=== PATIENT | male | born 1935 | race Caucasian/White ===

== ENCOUNTER 2017-09-07 16:51 | Outpatient (CLI) | payer MEDICARE ==
[~2017-09-07] VITALS: Ht 182.9 cm; Wt 84.3 kg
--- NOTE | ~2017-09-07 | HEMODYNAMI ---
PATIENT:DWAINE MIKE MEDICAL RECORD: [id number] : 35 LOCATION:[facility] D.2130 ADMISSION DATE: 09/07/17 Generatedon:09/10/20179:55 Patient name: DWAINE MIKE Patient #: [id number] SSN: : 1935 Date of study: 09/10/2017 Page: Of Hemodynamic Procedure Report Patient Data Patient Demographics Procedure consent was obtained First Name: DWAINE Gender: Male Last Name: CEE : 1935 Patient #: [id number] Age: 81 year(s) Race: Unknown Additional ID: [id number] Contact details [address]: [address] [place] [address] TRAIL State: [place] City: [facility] [place] Zip code: [address] Admission Admission Data Admission Date: 09/07/2017 Admission Time: 18:21 Room #: D.2130 Lab Results Lab Result Date: 09/10/2017 Lab Result Time: 0:00 Biochemistry Name Units Result Min Max BUN mg/dl 37 --(----)-* 7 18 Creatinine mg/dl 2.7 --(----)-* 0.6 1.3 CBC Name Units Result Min Max Hemoglobin g/dl 11 *-(----)-- 13.5 17.5 Procedure Procedure Types Cath Procedure PCI Procedure Coronary Stent Coronary Stent Initial Miscellaneous Procedures Moderate Sedation up to 30 minutes Procedure Description Procedure Date Procedure Date: 09/10/2017 Procedure Start Time: 9:37 Procedure End Time: 9:53 Procedure Staff Name Function Zaid Louis MD Performing Physician Nicole Davidson RT Scrub Sun Brito RT Monitor Luis Briggs RN Nurse Procedure Data Cath Procedure Fluoroscopy Diagnostic fluoroscopy Total fluoroscopy Time: 3.8 time: 3.8 min min Diagnostic fluoroscopy Total fluoroscopy dose: 661 dose: 661 mGy mGy Contrast Material Contrast Material Type Amount (ml) Isovue 300 37 Entry Location Entry Primary Successful Side Size Upsize Upsize Entry Closure Succes sful Closure Location (Fr) 1 (Fr) 2 (Fr) Remarks Device Remarks Femoral Left 6 Fr Exoseal artery Short Estimated blood loss: 5 ml Procedure Complications No complications Procedure Medications Medication Administration Route Dosage Oxygen NC 2 l/min Heparin Flush Bag added to field 2 bags (1000units/500ml NS) 0.9% NaCl I.V. 300 ml/hr Fentanyl I.V. 25 mcg Versed I.V. 0.5 mg Heparin Bolus I.V. 4000 units Hemodynamics Rest HGB: 11 (g/dl) Heart Rate: 61 (bpm) Snapshots Pre Cath Intra NCS Post Cath Vital Signs Time Heart Resp SPO2 etCO2 NIBP (mmHg) Rhythm Pain Sedation Rate (ipm) (%) (mmHg) Status Level (bpm) 9:22:25 63 21 90 0 168/69(134) NSR 0 (11) 10(A) , No pain 9:26:53 61 18 94 0 186/75(140) NSR 0 (11) 10(A) , No pain 9:31:25 59 16 95 0 158/68(119) NSR 0 (11) 10(A) , No pain 9:35:52 57 17 95 0 149/62(115) NSR 0 (11) 10(A) , No pain 9:40:18 56 19 98 0 150/59(112) NSR 0 (11) 9(A) , No pain 9:44:42 55 16 97 0 146/60(113) NSR 0 (11) 9(A) , No pain 9:49:06 56 18 96 0 139/55(109) NSR 0 (11) 9(A) , No pain 9:53:29 55 17 96 0 144/58(112) NSR 0 (11) 9(A) , No pain Medications Time Medication Route Dose Verified Delivered Reason Notes Effectiveness by by 9:34:43 Oxygen NC 2 Zaid Smith Per physician l/min Heriberto Briggs RN 9:34:52 Heparin Flush added 2 Zaid Smith used for Bag to bags Heriberto Briggs industrial painter (1000units/500ml field NS) 9:35:02 0.9% NaCl I.V. 300 Zaid Smith Per physician ml/hr Heriberto Briggs RN 9:35:11 Fentanyl I.V. 25 Zaid Smith for sedation mcg Heriberto Briggs RN 9:35:20 Versed I.V. 0.5 Zaid Smith for sedation mg Heriberto Briggs RN 9:47:02 Heparin Bolus I.V. 4000 Zaid Smith for units Heriberto Briggs RN anticoagulation Procedure Log Time Note 8:55:59 Luis Briggs RN sent for patient. Start room use. 9:18:10 Time tracking: Regular hours 9:18:14 Plan of Care:Hemodynamics will remain stable., Cardiac rhythm will remain stable., Comfort level will be maintained., Respiratory function will remain adequate., Patient/ family verbilizes understanding of procedure., Procedure tolerated without complication., Recovers from procedure without complications.. 9:18:31 Patient received from PCU to CCL 2 Alert and oriented. Tansferred to table in Supine position. 9:18:32 Warm blankets applied, and stacie hugger turned on for patient comfort. 9:18:32 Correct patient and procedure confirmed by team. 9:18:33 Signed procedure consent form obtained from patient. 9:18:34 ECG and BP/O2 sat monitors applied to patient. 9:21:07 Vital chart was started 9:21:19 Baseline sample Acquired. 9:21:25 Rhythm: sinus rhythm 9:21:26 Full Disclosure recording started 9:21:47 H&P Date Dictated: 09/09/2017 Within 30 days and on chart.. 9:21:48 Pre-procedure instructions explained to patient. 9:21:49 Pre-op teaching completed and patient verbalized understanding. 9:21:51 Family in patients room. 9:21:52 Patient NPO since Midnight. 9:21:53 Is the patient allergic to Iodine/contrast media? No. 9:21:54 Is patient on blood thinner?Yes 9:21:57 ACC The patient was administered the following blood thiners within the last 24 hours: ACCPlavix 9:22:01 Patient diabetic? Yes. 9:24:23 If diabetic: On Metformin? Yes 9:24:27 If on Metformin: Last Dose? 09/06/2017 9:24:30 Previous problem with sedation/anesthesia? No ? 9:24:32 Snore? Yes 9:24:36 Sleep apnea? No 9:24:37 Deviated septum? No 9:24:39 Opens mouth fully? Yes 9:24:40 Sticks out tongue? Yes 9:24:55 Airway obstruction? Yes COPD 9:26:13 Dentures? Yes out 9:27:12 Pre procedure: right dorsailis pedis pulse 1+ Palpable, but thready & weak; easily obliterated 9:27:14 Pre procedure: left dorsailis pedis pulse 1+ Palpable, but thready & weak; easily obliterated 9:27:16 Patient pain scale 0/10 ?. 9:27:46 IV patent on arrival in right hand with 0.9% NaCl at [facility]. 9:28:12 Lab Result : BUN 37 mg/dl 9::12 Lab Result : Hemoglobin 11 g/dl 9::12 Lab Result : Creatinine 2.7 mg/dl 9::48 Lab results completed and on chart. 9:29:31 Left groin area was prepped with chlora-prep and draped in sterile fashion 9:29:31 Alarms reviewed by R. N. 9:29:32 Sharps counted by scrub and verified by R.N. 9:30:47 Physician arrived 9:30:48 --------ALL STOP TIME OUT------ 9:30:48 Final Timeout: patient, procedure, and site verified with staff and physician. All members of the team are in agreement. 9:30:52 Left groin site verified by team. 9:30:55 Physical assessment completed. ASA score P 2 - A patient with mild systemic disease as per Zaid Louis MD. 9:31:00 Sedation plan: IV Moderate Sedation Medication:Versed, Fentanyl 9:32:24 Use device set Acist 9:32:26 ACIST Syringe (03712) opened to sterile field. 9:32:27 ACIST Hand Control (46368) opened to sterile field. 9:32:27 ACIST Manifold (71253) opened to sterile field. 9:32:30 Use device set TAUTH PCI 9:32:32 INFLATOR Merit BasixCompak (JU0531) opened to sterile field. 9:32:32 SHEATH 6FR [place] (RRK820) opened to sterile field. 9:32:43 EXOSEAL 6Fr (EX600) opened to sterile field. 9:33:16 DIAGNOSTIC WIRE .035 260cm J wire (559554) opened to sterile field. 9:34:43 Oxygen 2 l/min NC was administered by Luis Briggs RN; Per physician; 9:34:52 Heparin Flush Bag (1000units/500ml NS) 2 bags added to field was administered by Luis Briggs RN; used for procedure; 9:35:02 0.9% NaCl 300 ml/hr I.V. was administered by Luis Briggs RN; Per physician; 9:35:11 Fentanyl 25 mcg I.V. was administered by Luis Briggs RN; for sedation; 9:35:20 Versed 0.5 mg I.V. was administered by Luis Briggs RN; for sedation; 9:37:03 Procedure started. 9:37:25 Local anesthetic to left femerol artery with Lidocaine 2% by Zaid Louis MD.INITIAL ACCESS ONLY 9:42:39 A 6 Fr Short sheath was inserted into the Left Femoral artery 9:43:24 GUIDE 6FR XBLAD 3.5 SH catheter ([id number]) opened to sterile field. 9:44:34 6 Fr xblad 3.5 sh guide catheter was inserted over the wire 9:44:45 LCA angiography performed. 9:46:55 CHOICE PT Extra Support 182cm wire ([id number]) opened to sterile field. 9:47:02 Heparin Bolus 4000 units I.V. was administered by Luis Briggs RN; for anticoagulation; 9:48:30 choice pt wire advanced. 9:48:32 Wire advanced across lesion. 9:51:07 Inflation Number: 1 A SHANI RX 2.25 x 30 stent ([id number]) was prepped and advanced across the 1st Diag. The stent was deployed at 13 MICHAEL for 0:10 (min:sec). 9:51:24 Stent catheter was removed intact over wire. 9:51:25 Wire removed. 9:51:26 Guide catheter removed. 9:51:59 Sheath removed intact; hemostasis achieved with Exoseal to the Left Femoral artery. 9:52:02 Procedure ended.(Physican Out) 9:52:19 Fluoroscopy time 03.80 minutes. 9:52:29 Flurop Dose total: 661 9:52:29 Fluoroscopy dose: 661 mGy 9::34 Contrast amount:Isovue 300 37ml. 9:52:35 Sharps counted by scrub and verified by R.N. 9:52:37 Insertion/operative site no bleeding no hematoma. 9:52:40 Post-op/insertion site Left Femoral artery dressed using a 4 x 4 and Tegaderm. 9:52:43 Post left femerol artery:stable 9:52:45 Post Procedure Pulses reassessed and unchanged 9:52:48 Post procedure rhythm: unchanged. 9:52:50 Estimated blood loss: 5 ml 9:52:53 Post procedure instruction explained to patient.Patient verbalizes understanding. 9:52:53 Patient needs reinforcement of post procedure teaching. 9:53:04 Procedure type changed to Cath procedure, PCI procedure, Coronary Stent, Coronary Stent Initial, Miscellaneous Procedures, Moderate Sedation up to 30 minutes 9:53:06 Procedure and supply charges have been captured, reviewed, submitted and are correct. 9:53:10 Procedure Complication : No complications 9:53:12 Vital chart was stopped 9:53:13 See physician's report for complete and final results. 9:53:32 Report given to [facility]. 9:53:39 Patient transfered to [facility] with Stretcher. 9:53:41 Procedure ended. 9:53:41 Full Disclosure recording stopped 9:53:49 ACC-PCI Only Patient was given prescriptions, or instructed by Zaid Louis MD to start/continue the following medications upon discharge: Plavix 9:53:50 End room use (Document Last) Intervention Summary Intervention Notes Time ActionType Lesion and Equipment Used Action# Pressure Duration Attributes 9:51:07 Place stent 1st Diag SHANI RX 2.25 x 1 13 00:10 30 stent ([id number]) Device Usage Item Name Manufacture Quantity Catalog Number Hospital Part Current M inimal Lot# / Charge Number Stock Stock Serial# Code ACIST Syringe Acist 1 71352 848183 226833 520327 2 0 (30539) Medical Systems Inc ACIST Hand Acist 1 97601 144510 066605 830716 5 Control Medical (90292) Systems Inc ACIST Manifold Acist 1 26617 360722 108330 213299 5 (07353) [employer] Inc INFLATOR Merit Merit 1 [id number] 040978 939535 901358 1 5 TriCipher ([id number]) SHEATH 6FR Terumo 1 RLR002 480981 901436 979228 4 0 [place] ([id number]) EXOSEAL 6Fr Cardinal 1 EX600 623080 207271 471968 1 0 (EX600) Health DIAGNOSTIC [place] 1 826553 109665 205759 147581 3 0 WIRE .035 260cm J wire (732212) GUIDE 6FR Cardinal 1 [id number] 972576 961473 425601 3 XBLAD 3.5 SH Health catheter ([id number]) CHOICE PT [place] 1 [id number] 115534 502034 574691 5 Extra Support Scientific 182cm wire ([id number]) SHANI RX 2.25 x Medtronic 1 [id number] 675915 3970911 733405 5 [id number] 30 stent ([id number]) Signature Audit [place] Stage Time Signature Unsigned Intra-Procedure 09/10/2017 Sun Brito 9:55:32 AM RT(R) Signatures Monitor : Sun Brito RT Signature : Date : Time : [facility] [address] [place] [address]
[2017-09-07 17:33] LABS: BASOPHILS 0.2 % (0-2); EOSINOPHILS 5.6 % (0-7); HEMATOCRIT 32.5 % (42.0-54.0); HEMOGLOBIN 10.3 g/dL (13.5-17.5); IMMATURE GRANULOCYTES 0.2 % (0-5); LYMPHOCYTES 20.5 % (15-50); MCH 30.7 pg (26.0-34.0); MCHC 31.7 g/dL (31.0-37.0); MEAN PLATELET VOLUME 11.8 fL (7.4-10.4); MONOCYTES 11.9 % (2-11); NEUTROPHILS 61.6 % (40-80); PLATELET COUNT 150 10x3/uL (130-400); RBC 3.35 10x6/uL (4.20-6.10); RDW 13.1 % (11.5-14.5); WBC 6.1 10x3/uL (4.8-10.8)
[2017-09-07 17:46] LABS: ALBUMIN 3.4 g/dL (3.4-5.0); ALKALINE PHOSPHATASE 61 U/L (46-116); ALT (SGPT) 12 U/L (10-68); BILIRUBIN - TOTAL 0.23 mg/dL (0.2-1.3); CALC OSMOLALITY 290 mosm/kg (275-300); CALCIUM 11.1 mg/dL (8.5-10.1); CARBON DIOXIDE 34.3 mmol/L (21.0-32.0); CHLORIDE - SERUM 101 mmol/L (98-107); GLUCOSE 148 mg/dL (74-106); POTASSIUM - SERUM 4.8 mmol/L (3.5-5.1); PROTEIN - SERUM 7.1 g/dL (6.4-8.2); SODIUM 140 mmol/L (136-145); UREA NITROGEN 37 mg/dL (7-18); eGFR NON AFRICAN AMERICAN 34 mL/min (90-120)
[2017-09-07 17:57] LABS: CHOL - HDL RATIO 3.7 ratio (2.3-4.9); CHOLESTEROL, TOTAL 130 mg/dL (0-200); CKMB 1.9 U/L (0.0-3.6); CREATINE KINASE 61 UL (21-232); HDL CHOLESTEROL 35 mg/dL (32-96); LDL CHOLESTEROL 51 mg/dL (0-100); LDL-HDL RATIO 1.5 ratio (1.5-3.5); TRIGLYCERIDE 223 mg/dL (30-200); TROPONIN-I < 0.017 ng/mL (0.000-0.060)
[2017-09-07 18:50] LABS: MAGNESIUM - SERUM 1.6 mg/dL (1.8-2.4)
--- NOTE | 2017-09-07 19:30 | NUR ---
RECIEVED TO ROOM 2130 FROM ER VIA W/C. PT A&O. IV TO HAND SL, SITE CLEAN AND DRY. PLACED ON TELEMETRY. VITALS STABLE. AT BED SIDE, RECLINER CHAIR TAKEN TO ROOM FOR PTS . NO OTHER NEEDS AT THIS TIME, BED LOW, CL IN REACH.
[2017-09-07] MEDS ORDERED: NORVASC10 MG PO (20:07)
[2017-09-07] MEDS ORDERED: LASIX80 MG PO (20:08)
[2017-09-07] MEDS ORDERED: TRAZODONE HCL50 MG PO (20:09)
[2017-09-07] MEDS ORDERED: COREG6.25 MG PO (20:09)
[2017-09-07] MEDS ORDERED: ZOFRAN ODT4 MG/UDTAB PO (20:10)
[2017-09-07] MEDS ORDERED: JANUVIA100 MG PO (20:12)
[2017-09-07] MEDS ORDERED: CARDURA2 MG PO (20:12)
[2017-09-07] MEDS ORDERED: PROTONIX40 MG PO (20:12)
[2017-09-07] MEDS ORDERED: PRAVASTATIN SOD10 MG PO (20:13)
[2017-09-07] MEDS ORDERED: GLUCOPHAGE850 MG PO (20:13)
[2017-09-07] MEDS ORDERED: VITAMIN D5000 UNIT PO (20:15)
[2017-09-07] MEDS ORDERED: BAYER CHEWABLE81 MG PO (20:15)
[2017-09-07 21:14] VITALS: BP 131/59; BMI 25.6
[2017-09-07 21:26] VITALS: BP 131/59
--- NOTE | 2017-09-07 21:50 | NUR ---
CONSENTS SIGNED FOR CARDIAC CATH TO BE DONE IN AM. INFORMED PT OF NOTHING TO EAT OR DRINK AFTER MN, PT STATED UNDERSTANDING.
[2017-09-08] VITALS: BP 162/61
--- NOTE | 2017-09-08 03:20 | NUR ---
PT IN BED RESTING QUIETLY. BREATHING EVEN AND UNLABORED. BED IN LOW POSITION, CALL LIGHT WITHIN REACH. WILL CTM.
--- NOTE | 2017-09-08 05:15 | NUR ---
RESTING WITH EYES CLOSED, RESPERATIONS EVEN, NO S/S DISTRESS NOTED.
[2017-09-08 06:27] VITALS: BP 170/69
--- NOTE | 2017-09-08 07:13 | NUR ---
PT IN BED, WITH EYES CLOSED, AROUSES EASILY TO VOICE. RESP EVEN AND UNLABORED, RT HAND IV SL. PT REQUESTING TO GET IN THE SHOWER. WILL PROVIDED PT WITH SUPPLIES NEEDED FOR SHOWER AND WILL COVER HIS IV. PT DENIES ANY OTHER NEEDS AT THIS TIME. CALL LIGHT IN REACH, NAD NOTED, WILL CONTINUE PLAN OF CARE.
[2017-09-08 07:31] VITALS: BP 184/73
--- NOTE | 2017-09-08 10:09 | NUR ---
PRE-OP MEDS GIVEN AT THIS TIME. PT UP TO BATHROOM. DENIES ANY NEEDS AT THIS TIME, AT BEDSIDE, CALL LIGHT IN REACH, NAD NOTED, WILL CONTINUE PLAN OF CARE.
--- NOTE | 2017-09-08 10:39 | NUR ---
PT TRANSFERED TO INTERPRETATIVE DANCER VIA BED, NAD NOTED.
--- NOTE | 2017-09-08 11:40 | NUR ---
RECEIVED REPORT FROM TONY FROM COLOR PRINTER OPERATOR.
[2017-09-08 11:41] VITALS: BP 182/74
--- NOTE | 2017-09-08 11:55 | NUR ---
RECEIVED PT BACK TO ROOM 2130, PT WITH EYES CLOSED BUT EASILY AROUSES TO VOICE. NO BLEEDING, OR HEMATOMA NOTED TO RT GROIN. DRESSING CLEAN AND INTACT. PLACED PT ON FREQUENT VITAL SIGNS. PLACED TELEMERTRY BACK ON. BLOOD SUGAR OF 123, NO COVERAGE NEEDED PER S/S. DR. PADILLA AT BEDSIDE TO TALK TO . ASKED DR. PADILLA ABOUT STARTING HOME MEDS. DR. PADILLA STATED THAT IT WAS OKAY TO START MEDS. PT DENIES ANY NEEDS AT THIS TIME, INSTRUTED PT AND THAT PT NEEDS TO LAY FLAT FOR 4HR. CALL LIGHT IN REACH, NAD NOTED, WILL CONTINUE TO MONITOR.
[2017-09-08 13:33] VITALS: Ht 182.9 cm; Wt 84.3 kg
--- NOTE | 2017-09-08 16:04 | NUR ---
RAISED HEAD OF BED TO 30 DEGREES AT THIS TIME. NO BLEEDING OR HEMATOMA NOTED TO RT GROIN. BLOOD SUGAR OF 102, NO COVERAGE NEEDED PER S/S. PT IN BED, DNEIES ANY NEEDS AT THIS TIME. CALL LIGHT IN REACH, NAD NOTED.
[2017-09-08 16:37] VITALS: BP 153/67
--- NOTE | 2017-09-08 20:21 | NUR ---
PT RESTING COMFORTABLY, ORANGE JELLO GIVEN FOR BEDTIME SNACK. NO NEEDS AT THIS TIME. RT GROIN REMAINS, CLEAN, DRY, DRESSING INTACT, NO HEMATOMA, WARM TO TOUCH. CONTINUE TO MONITOR CLOSELY.
[2017-09-08 21:03] VITALS: BP 143/70
[2017-09-09 05:40] VITALS: BP 138/61
--- NOTE | 2017-09-09 06:52 | NUR ---
PT RESTING COMFORTABLY I WAS PREPARING TO GIVE HIM HIS 0600 MEDICATIONS THIS A.M. I NOTICED PT HAD A BRIEF APNEIC EPISODE WHILE HE SLEPT, LASTING BETWEEN 10-15 SECONDS. PT WAS EASILY ROUSED WITH VERBAL STIMULI. TEACHING DONE ON VIOLETTE AND I HAVE ENCOURAGED PT TO NOTIFY HIS PHYSICIAN WELL. ALSO PT IS HAVING SMALL AMOUNTS OF BLOOD ON HIS TISSUE FROM HIS NOSE R/T THE DRYNESS OF THE O2. NO NEEDS AT THIS TIME. CONTINUE TO MONITOR CLOSELY.
--- NOTE | 2017-09-09 07:15 | NUR ---
PT IN BED, WATCHING TV, RESP EVEN AND UNLABORED, RT HAND IV SL. PT DENIES ANY NEEDS AT THIS TIME STATED HE IS WAITING FOR BREAKFAST. CALL LIGHT IN REACH, NAD NOTED, WILL CONTINUE PLAN OF CARE.
--- NOTE | 2017-09-09 08:18 | NUR ---
AM MEDS GIVEN AT THIS TIME. PT IN BED, EATING BREAKFAST, DENIES ANY NEEDS AT THIS TIME. CALL LIGHT IN REACH, NAD NOTED, WILL CONTINUE PLAN OF CARE.
[2017-09-09 08:34] VITALS: BP 134/59
--- NOTE | 2017-09-09 11:20 | NUR ---
BLOOD SUGAR OF 206, 4UNITS OF HUMULIN R GIVEN PER S/S. PT IN BED, DENIES ANY NEEDS AT THSI TIME. AT BEDSIDE, CALL LIGHT IN REACH, NAD NOTED, WILL CONTINUE PLAN OF CARE.
[2017-09-09 12:25] VITALS: BP 116/48
[2017-09-09 15:56] LABS: BASOPHILS 0 % (0-2); IMMATURE GRANULOCYTES 0.3 % (0-5); LYMPHOCYTES 18.8 % (15-50); MCH 30.6 pg (26.0-34.0); MCHC 31.4 g/dL (31.0-37.0); MCV 97.2 fL (80.0-100.0); MEAN PLATELET VOLUME 10.6 fL (7.4-10.4); MONOCYTES 12.2 % (2-11); NEUTROPHILS 62.7 % (40-80); PLATELET COUNT 135 10x3/uL (130-400); RDW 13.3 % (11.5-14.5); WBC 6.3 10x3/uL (4.8-10.8)
--- NOTE | 2017-09-09 16:17 | NUR ---
BLOOD SUGAR OF 154, 2UNITS OF HUMULIN R PER S/S. PT UP TO CHAIR, DENIES ANY NEEDS AT THIS TIME. CALL LIGHT IN REACH,NAD NOTED, WILL CONTINUE PLAN OF CARE.
[2017-09-09 16:20] LABS: ANION GAP 9.7 mmol/L (8-16); CALCIUM 10.2 mg/dL (8.5-10.1); POTASSIUM - SERUM 4.7 mmol/L (3.5-5.1)
[2017-09-09 16:21] LABS: CREATININE - SERUM 2.7 mg/dL (0.6-1.3)
[2017-09-09 16:35] VITALS: BP 133/50; BP 171/107
[2017-09-09 21:56] VITALS: BP 174/54
[2017-09-10 06:09] VITALS: BP 158/61
--- NOTE | 2017-09-10 07:14 | NUR ---
PT IN BED, WITH EYES CLOSED, AROUSES EASILY TO VOICE. RESP EVEN AND UNLABORED ON 2L. RT HAND IV SL. PT DENIES ANY NEEDS AT THIS TIME. CALL LIGHT IN REACH, NAD NOTED, WILL CONTINUE PLAN OF CARE.
[2017-09-10 08:43] VITALS: BP 158/62
--- NOTE | 2017-09-10 09:20 | NUR ---
PT TRANSFERED TO OFFICE SUPPORT ASSOCIATE VIA BED, NAD NOTED.
--- NOTE | 2017-09-10 10:10 | NUR ---
RECEIVED PT BACK TO ROOM 2129 VIA BED, VITAL SIGNS STABLE, NO BLEEDING OR HEMATOMA NOTED TO LT GROIN. PT DROWSY BUT EASILY AROUSES TO VOICE, PLACED PT ON FREQUENT VITAL SIGNS, PT DENIES ANY NEEDS AT THIS TIME. CALL LIGHT IN REACH, AT BEDSIDE, NAD NOTED, WILL CONTINUE TO MONITOR.
--- NOTE | 2017-09-10 11:59 | NUR ---
BLOOD SUGAR OF 127, NO COVERAGE NEEDED PER S/S. PT STILL SLEEPING, EASILY AROUSES EASILY TO VOICE. PT DENIES ANY NEEDS AT THIS TIME, AT BEDSIDE, NAD NOTED, WILL CONTINUE TO MONITOR.
[2017-09-10 13:12] VITALS: BP 134/45
--- NOTE | 2017-09-10 13:19 | NUR ---
Nutrition Follow Up: Pt is eating 81% meal avg on an AHA diet. No BM since admit. Wt stable. Labs reviewed. Meds noted including Lasix. Rec continue current diet. RD following.
[2017-09-10 17:17] VITALS: BP 129/54
--- NOTE | 2017-09-10 19:45 | NUR ---
ROUNDING NOTE: PT A,A,OX3, SITTING UP WATCHING TV IN BED AT CHANGE OF SHIFT. 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 PT HAD CARDIAC CATH DONE X2 VIA BILATERAL GROIN W/ STENT X1 TO CIRC AND STENT X1 TO DIAG. D/C HELD TODAY D/T ELEVATED BUN/CR LEVEL. PT WAS GIVEN IVF AND LABS WILL BE RECHECKED WITH POTENTIAL D/C IN THE AM. CATH SITES C/D/I WITH PALP PULSES BILATERALLY, NO HEMATOMAS. WILL CONT TO MONITOR.
[2017-09-10 22:00] VITALS: BP 141/53
[2017-09-11 00:36] VITALS: BP 155/54
[2017-09-11 05:11] VITALS: BP 141/57
--- NOTE | 2017-09-11 05:16 | NUR ---
PT HAS BEEN SLEEPING THROUGHOUT THE NIGHT WITHOUT COMPLAINT. WILL CONTINUE TO MONITOR.
[2017-09-11 07:17] LABS: ANION GAP 4.8 mmol/L (8-16); CALCIUM 10.5 mg/dL (8.5-10.1); CARBON DIOXIDE 36.7 mmol/L (21.0-32.0); CREATININE - SERUM 2.1 mg/dL (0.6-1.3); POTASSIUM - SERUM 4.5 mmol/L (3.5-5.1)
--- NOTE | 2017-09-11 07:30 | NUR ---
ASSESSMENT COMPLETED. TELEMERTY SHOWS SR 60. IV TO RIGHT HAND. RIGHT AND LEFT GROING WITH DRSG DRY AND INTACT. UP AT DEMARCO. WILL MONITOR
[2017-09-11 09:19] VITALS: BP 162/57
[2017-09-11] MEDS ORDERED: PLAVIX75 MG PO (10:07)
--- NOTE | 2017-09-11 10:37 | NUR ---
PT DISCHARGED. IV DCD WITH TIP INTACT. DRSG TO RIGHT AND LEFT GROIN INTACT. INSTRUCTIONS GIVEN. TO PRIVATE CAR PER WHEELCHAIR
--- NOTE | 2017-09-11 10:39 | NUR ---
TO PRIVATE CAR PER WHEELCHAIR
== END 2017-09-11 10:39 | disposition home or self-care (01) ==
LOC: OBSVTIME → D.ER 16:51 → D.OPS 16:51 → D.M2 18:08 → OBSVTIME 18:21 → D.ER 18:21 → D.M2 18:21 → EDSTATUS 09-08 09:00 → D.OPS 09-11 10:39 → D.M2 09-11 10:39
PROVIDERS: Emergency Medicine; Internal Medicine Interventional Cardiology
DX: I25.119 Atherosclerotic heart disease of native coronary artery with unspecified angina pectoris (principal); I70.219 Atherosclerosis of native arteries of extremities with intermittent claudication, unspecified extremity; N28.9 Disorder of kidney and ureter, unspecified; Z01.810 Encounter for preprocedural cardiovascular examination; Z01.812 Encounter for preprocedural laboratory examination; R94.31 Abnormal electrocardiogram [ECG] [EKG]
CPT/HCPCS: 93458; C9600 ×2

== ENCOUNTER → 2017-11-25 15:10 | Outpatient (CLI) | payer OTHER ==
[2017-09-08 13:33] VITALS: BMI 25.1
[~2017-11-25 15:10] MED LIST: BAYER CHEWABLE81 MG PO; CARDURA2 MG PO; CATAPRES0.1 MG PO; COREG6.25 MG PO; FLUTICASONE PRO16 GM NASAL; GLUCOPHAGE850 MG PO; HUMULIN R100 U/ML SC; HYDRALAZINE HCL50 MG PO; IPRAT-ALBUT 0.5-3 ML UPD; JANUVIA100 MG PO; LASIX80 MG PO; MUCINEX DM ER1 EAC1 PO; MUCINEX600 MG PO; NORVASC10 MG PO; PLAVIX75 MG PO; PRAVASTATIN SOD10 MG PO; PROTONIX40 MG PO; SINGULAIR10 MG PO; TESSALON PERLE100 MG PO; TRAZODONE HCL50 MG PO; VITAMIN D5000 UNIT PO; ZOFRAN ODT4 MG/UDTAB PO; ZOLOFT50 MG PO
[2017-11-25 16:22] LABS: APPEARANCE HAZY (CLEAR); BILIRUBIN NEGATIVE (NEGATIVE); COLOR DK YELLOW (YELLOW); GLUCOSE 50 mg/dL (NEGATIVE); KETONE NEGATIVE (NEGATIVE); NITRITE NEGATIVE (NEGATIVE); PROTEIN 2+ mg/dL (NEGATIVE); SPECIFIC GRAVITY 1.025 (1.005-1.020); UROBILINOGEN NORMAL (NORMAL)
[2017-11-25 16:23] LABS: BACTERIA FEW /hpf (NONE SEEN); WHITE CELLS - URINE 0-5 /hpf (0-5)
== END | disposition home or self-care (01) ==
LOC: D.RAD 15:10
PROVIDERS: Nurse Practitioner
DX: R50.9 Fever, unspecified (principal)

== ENCOUNTER 2017-11-26 10:39 | Inpatient (IN) | payer OTHER ==
[~2017-11-26] VITALS: Ht 182.9 cm; Wt 84.1 kg
--- NOTE | ~2017-11-26 | EC ---
PATIENT:DWAINE MIKE DATE OF SERVICE: 11/26/17 SEX: M MEDICAL RECORD: [id number] DATE OF : 35 LOCATION:[facility] AGE OF PATIENT: 82 ADMISSION DATE: 11/26/17 REFERRING PHYSICIAN: INTERPRETING PHYSICIAN: DANNIE BOWEN MD ECHOCARDIOGRAM REPORT ECHO CHARGES 4 ECHO COMPLETE CLINICAL DIAGNOSIS: CHF/ASSESS EF ECHOCARDIOGRAPHIC MEASUREMENTS (adult normal given) AC root (d.<3.7cm) 3.8 cm LV Septum d (<1.2 cm> 1.4 cm Valve Excursion 2.1 cm LV Septum (systole) 1.6 cm Left Atria (s.<4.0cm> 4.4 cm LVPW d(<1.2cm) 1.3 cm RV (d.<2.3cm) 3.9 cm LVPW (sytole) 1.5 cm LV diastole(<5.6CM) 6.3 cm MV E-F(>70mm/sec) cm LV systole 4.6 cm LVOT Diameter 2.2 cm MV exc.(>10mm) 2.2 cm Est.ejection fraction (50-75%) % Pericardial Effusion N DOPPLER: LVIT cm/sec A 129 cm/sec E 116 cm/sec LA cm/sec RVSP 23 mmHg LVOT 134 cm/sec AOP1/2T m/s Asc. Ao 169 cm/sec RVOT 115 cm/sec RA cm/sec PA 165 cm/sec AV Gradient Peak 11.42mmHg AV Mean 5.92 mmHg AV Area 3.1 cm MV Gradient Peak 8.73 mmHg MV Mean 3.82 mmHg MV Area cm COMMENTS: Automation Control Integrator: 2 ERNESTO LUEVANO Senior Staff Accountant: 4 Dr. Bowen TAPE# PACS DATE OF SERVICE: 11/27/2017 TRANSTHORACIC ECHOCARDIOGRAM FINDINGS: 1. Left ventricle is difficult to see. The overall ejection fraction appears to be reduced. There appears to be anterior septal hypokinesis. The overall ejection fraction is 30% to 35%. 2. Left atrium is mildly dilated. 3. Aortic valve is normal. ECHOCARDIOGRAM REPORT [id number] DWAINE MIKE 4. The mitral valve has mild mitral regurgitation. 5. Tricuspid valve has trace tricuspid regurgitation. 6. The right-sided structures are mildly dilated. The RVSP appears to be normal. 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 Difficult to get an exact number because endocardial structures are not well visualized. TRANSINT:[id number] Voice Confirmation ID: [id number] DOCUMENT ID: [id number] 12/06/2017 Edited to correct date of service, dmm. DANNIE BOWEN MD at 1001 CC: [id number] DICTATION DATE: 11/29/17 1152 MOTION PICTURE FILM EXAMINER: 11/29/17 1218 ADM IN [place] [id number] [place] [address]
--- NOTE | ~2017-11-26 | OP ---
PATIENT NAME: DWAINE MIKE MEDICAL RECORD: [id number] :35 LOCATION:[facility] ADMISSION DATE:11/26/17 SURGEON: OSIRIS MARKS MD DATE OF OPERATION: 11/30/2017 PREOPERATIVE DIAGNOSES: 1. Acute renal failure. 2. Coronary artery disease. 3. Hypertension. 4. UTI. POSTOPERATIVE DIAGNOSES: 1. Acute renal failure. 2. Coronary artery disease. 3. Hypertension. 4. UTI. PROCEDURE: Right IJ 12.5-cm Trialysis catheter placement. SURGEON: Osiris Marks MD REPORT OF PROCEDURE: The patient's right neck was prepped and draped in sterile fashion. Using ultrasound guidance, the right internal jugular was visualized. A 5 mL of 1% lidocaine with epinephrine was infused into the surrounding tissues. Using ultrasound guidance, a needle was used to cannulate the right internal jugular vein. The guidewire was advanced with ease. Over this wire, the dilator was placed followed by the Trialysis catheter. The catheter aspirated nonpulsatile dark blood and flushed easily in all 3 ports. This was sutured into place with 3-0 silk ties and dressed appropriately. COMPLICATIONS: None. CONDITION: Fair. ANESTHESIA: Local. BLOOD LOSS: Minimal. Procedure done in the ICU at the bedside. TRANSINT:[id number] Voice Confirmation ID: [id number] DOCUMENT ID: [id number] OSIRIS MARKS MD at 1319 CC: [id number] DICTATION DATE: 11/30/17 1549 COUNTRY MANAGER: 11/30/17 160[address] [place] [address]
[~2017-11-26 10:39] MED LIST changes: -CATAPRES0.1 MG PO; -FLUTICASONE PRO16 GM NASAL; -HUMULIN R100 U/ML SC; -HYDRALAZINE HCL50 MG PO; -IPRAT-ALBUT 0.5-3 ML UPD; -MUCINEX DM ER1 EAC1 PO; -MUCINEX600 MG PO; -SINGULAIR10 MG PO; -TESSALON PERLE100 MG PO; -ZOLOFT50 MG PO
[2017-11-26 11:07] LABS: BASOPHILS 0.1 % (0-2); EOSINOPHILS 0 % (0-7); HEMATOCRIT 25.9 % (42.0-54.0); IMMATURE GRANULOCYTES 0.4 % (0-5); LYMPHOCYTES 6.1 % (15-50); MCH 29.2 pg (26.0-34.0); MCHC 30.9 g/dL (31.0-37.0); MCV 94.5 fL (80.0-100.0); MEAN PLATELET VOLUME 12.8 fL (7.4-10.4); MONOCYTES 9.7 % (2-11); NEUTROPHILS 83.7 % (40-80); PLATELET COUNT 144 10x3/uL (130-400); RBC 2.74 10x6/uL (4.20-6.10); RDW 14.6 % (11.5-14.5)
[2017-11-26 11:08] LABS: ALBUMIN 2.7 g/dL (3.4-5.0); ANION GAP 13.4 mmol/L (8-16); BILIRUBIN - TOTAL 0.27 mg/dL (0.2-1.3); CALCIUM 10.8 mg/dL (8.5-10.1); CARBON DIOXIDE 29.1 mmol/L (21.0-32.0); CREATININE - SERUM 5.5 mg/dL (0.6-1.3); POTASSIUM - SERUM 5.5 mmol/L (3.5-5.1)
[2017-11-26 11:18] LABS: APTT 33.4 SECONDS (22.8-39.4); INR 1.29 (0.85-1.17); PROTIME 15.6 SECONDS (11.6-15.0)
[2017-11-26 11:31] LABS: TROPONIN-I 0.518 ng/mL (0.000-0.060)
[2017-11-26 11:58] LABS: APPEARANCE SLT CLOUDY (CLEAR); BILIRUBIN NEGATIVE (NEGATIVE); COLOR YELLOW (YELLOW); GLUCOSE 100 mg/dL (NEGATIVE); KETONE NEGATIVE (NEGATIVE); NITRITE NEGATIVE (NEGATIVE); PROTEIN 3+ mg/dL (NEGATIVE); SPECIFIC GRAVITY 1.015 (1.005-1.020)
[2017-11-26 11:59] LABS: AMORPHOUS SEDIMENT >1+ /lpf (NONE SEEN); BACTERIA MODERATE /hpf (NONE SEEN); EPITHELIAL CELLS 0-5 /hpf (0-5); MUCUS <1+ /lpf (NONE SEEN); RED CELLS - URINE 0-5 /hpf (0-5); WHITE CELLS - URINE OCC /hpf (0-5)
[2017-11-26 12:00] LABS: GRANULAR CAST OCC /lpf (NONE SEEN)
[2017-11-26 13:07] LABS: TROPONIN-I 0.551 ng/mL (0.000-0.060)
[2017-11-26 16:08] VITALS: BP 104/53; BMI 26.5
[2017-11-26] MEDS ORDERED: PROTONIX40 MG PO (16:22)
[2017-11-26 16:27] VITALS: BP 104/53
[2017-11-26 19:45] LABS: CKMB 1.5 U/L (0.0-3.6); CREATINE KINASE 65 UL (21-232)
[2017-11-26 19:49] LABS: TROPONIN-I 0.533 ng/mL (0.000-0.060)
[2017-11-26 20:00] VITALS: BP 140/59
[2017-11-27] VITALS: BP 126/40
[2017-11-27 00:24] LABS: CKMB 1.3 U/L (0.0-3.6); CREATINE KINASE 49 UL (21-232)
[2017-11-27 00:25] LABS: TROPONIN-I 0.456 ng/mL (0.000-0.060)
[2017-11-27 06:06] LABS: BASOPHILS 0.1 % (0-2); EOSINOPHILS 0 % (0-7); HEMATOCRIT 28.6 % (42.0-54.0); HEMOGLOBIN 8.9 g/dL (13.5-17.5); IMMATURE GRANULOCYTES 0.7 % (0-5); LYMPHOCYTES 5.4 % (15-50); MCH 29.3 pg (26.0-34.0); MCHC 31.1 g/dL (31.0-37.0); MCV 94.1 fL (80.0-100.0); MEAN PLATELET VOLUME 12.4 fL (7.4-10.4); MONOCYTES 8.1 % (2-11); NEUTROPHILS 85.7 % (40-80); PLATELET COUNT 144 10x3/uL (130-400); RBC 3.04 10x6/uL (4.20-6.10); RDW 14.6 % (11.5-14.5); WBC 9.4 10x3/uL (4.8-10.8)
[2017-11-27 06:23] LABS: ALBUMIN 2.3 g/dL (3.4-5.0); BILIRUBIN - TOTAL 0.2 mg/dL (0.2-1.3); CALCIUM 9.7 mg/dL (8.5-10.1); CARBON DIOXIDE 26.4 mmol/L (21.0-32.0); CREATININE - SERUM 5.8 mg/dL (0.6-1.3); POTASSIUM - SERUM 4.4 mmol/L (3.5-5.1); PROTEIN - SERUM 6.6 g/dL (6.4-8.2)
[2017-11-27 06:43] LABS: CKMB 1.1 U/L (0.0-3.6); CREATINE KINASE 37 UL (21-232)
[2017-11-27 06:51] LABS: TROPONIN-I 0.455 ng/mL (0.000-0.060)
[2017-11-27 07:45] VITALS: BP 146/64
[2017-11-27 10:50] VITALS: BP 152/77
[2017-11-27 14:58] VITALS: BP 132/56
[2017-11-27 18:06] LABS: % SATURATION 5 % (15-55); IRON 12 ug/dl (35-150); TOTAL IRON BIND CAPACITY 231 ug/dl (260-445); UNSAT IRON BIND CAPACITY 219 ug/dl (150-375)
[2017-11-27 21:40] VITALS: BP 140/51
[2017-11-28] VITALS (19 sets, daily range): BP systolic 92–160; BP diastolic 51–93
[2017-11-28 06:45] LABS: BASOPHILS 0 % (0-2); EOSINOPHILS 0.3 % (0-7); HEMATOCRIT 27.3 % (42.0-54.0); HEMOGLOBIN 8.5 g/dL (13.5-17.5); IMMATURE GRANULOCYTES 1.2 % (0-5); MCH 29.1 pg (26.0-34.0); MCHC 31.1 g/dL (31.0-37.0); MCV 93.5 fL (80.0-100.0); MEAN PLATELET VOLUME 12.1 fL (7.4-10.4); MONOCYTES 10.6 % (2-11); NEUTROPHILS 81.9 % (40-80); PLATELET COUNT 168 10x3/uL (130-400); RBC 2.92 10x6/uL (4.20-6.10); RDW 14.6 % (11.5-14.5)
[2017-11-28 07:02] LABS: ANION GAP 16.7 mmol/L (8-16); CALCIUM 9.8 mg/dL (8.5-10.1); CARBON DIOXIDE 24.7 mmol/L (21.0-32.0); CREATININE - SERUM 6.3 mg/dL (0.6-1.3); POTASSIUM - SERUM 4.4 mmol/L (3.5-5.1); VANCOMYCIN - TROUGH 8.4 ug/mL (10.0-20.0)
[2017-11-28 11:55] LABS: BILIRUBIN - DIRECT 0.11 mg/dL (0.00-0.30); BILIRUBIN - INDIRECT 0.15 mg/dL (0.00-1.00); BILIRUBIN - TOTAL 0.26 mg/dL (0.2-1.3); PROTEIN - SERUM 6.1 g/dL (6.4-8.2)
[2017-11-29] VITALS (24 sets, daily range): BP systolic 104–158; BP diastolic 52–81; Ht 182.9 cm; Wt 84.1 kg
[2017-11-29 04:50] LABS: BASOPHILS 0.1 % (0-2); EOSINOPHILS 1.6 % (0-7); HEMATOCRIT 28.5 % (42.0-54.0); HEMOGLOBIN 8.8 g/dL (13.5-17.5); IMMATURE GRANULOCYTES 0.9 % (0-5); LYMPHOCYTES 5.5 % (15-50); MCH 28.5 pg (26.0-34.0); MCHC 30.9 g/dL (31.0-37.0); MCV 92.2 fL (80.0-100.0); MEAN PLATELET VOLUME 12.1 fL (7.4-10.4); MONOCYTES 9.3 % (2-11); NEUTROPHILS 82.6 % (40-80); PLATELET COUNT 185 10x3/uL (130-400); RBC 3.09 10x6/uL (4.20-6.10); RDW 14.5 % (11.5-14.5); WBC 8.1 10x3/uL (4.8-10.8)
[2017-11-29 05:16] LABS: ANION GAP 15.9 mmol/L (8-16); BILIRUBIN - TOTAL 0.4 mg/dL (0.2-1.3); CALCIUM 9.6 mg/dL (8.5-10.1); CARBON DIOXIDE 27.3 mmol/L (21.0-32.0); CREATININE - SERUM 6.1 mg/dL (0.6-1.3); MAGNESIUM - SERUM 1.8 mg/dL (1.8-2.4); PHOSPHOROUS 5.3 mg/dL (2.5-4.9); POTASSIUM - SERUM 4.2 mmol/L (3.5-5.1); PROTEIN - SERUM 5.5 g/dL (6.4-8.2)
[2017-11-29 08:58] LABS: APPEARANCE SLT CLOUDY (CLEAR); BILIRUBIN NEGATIVE (NEGATIVE); COLOR YELLOW (YELLOW); GLUCOSE NEGATIVE (NEGATIVE); KETONE NEGATIVE (NEGATIVE); NITRITE NEGATIVE (NEGATIVE); PROTEIN TRACE mg/dL (NEGATIVE); SPECIFIC GRAVITY 1.015 (1.005-1.020); UROBILINOGEN NORMAL (NORMAL)
[2017-11-29 09:01] LABS: AMORPHOUS SEDIMENT <1+ /lpf (NONE SEEN); BACTERIA FEW /hpf (NONE SEEN); EPITHELIAL CELLS 0-5 /hpf (0-5); GRANULAR CAST 0-5 /lpf (NONE SEEN); MUCUS <1+ /lpf (NONE SEEN); WHITE CELLS - URINE 0-5 /hpf (0-5)
[2017-11-29 09:03] LABS: CREATININE - URINE 54.6 mg/dL (30-125); PRO/CRE RATIO URINE 1.4 mg/g; PROTEIN - URINE 73.8 mg/dL (0.0-11.9)
[2017-11-30] VITALS (24 sets, daily range): BP systolic 138–201; BP diastolic 52–120
[2017-11-30 04:51] LABS: BASOPHILS 0.1 % (0-2); EOSINOPHILS 3.2 % (0-7); HEMATOCRIT 26.8 % (42.0-54.0); HEMOGLOBIN 8.3 g/dL (13.5-17.5); IMMATURE GRANULOCYTES 1.2 % (0-5); LYMPHOCYTES 8.2 % (15-50); MCH 28.6 pg (26.0-34.0); MCV 92.4 fL (80.0-100.0); MEAN PLATELET VOLUME 11.7 fL (7.4-10.4); MONOCYTES 9.1 % (2-11); NEUTROPHILS 78.2 % (40-80); PLATELET COUNT 197 10x3/uL (130-400); RDW 14.5 % (11.5-14.5); WBC 8.5 10x3/uL (4.8-10.8)
[2017-11-30 05:10] LABS: ANION GAP 13.5 mmol/L (8-16); CALCIUM 10.5 mg/dL (8.5-10.1); CARBON DIOXIDE 29.6 mmol/L (21.0-32.0); CREATININE - SERUM 6.3 mg/dL (0.6-1.3); POTASSIUM - SERUM 4.1 mmol/L (3.5-5.1); VANCOMYCIN - RANDOM 11.8 ug/mL (10.0-20.0)
[2017-11-30 08:20] LABS: FOLATE (FOLIC ACID) - SERUM 12.4 ng/mL (>3.0)
[2017-11-30 10:19] LABS: OSMOLALITY - URINE 346 (())
[2017-12-01] VITALS (24 sets, daily range): BP systolic 121–191; BP diastolic 57–102
[2017-12-01 04:27] LABS: BASOPHILS 0.1 % (0-2); EOSINOPHILS 2.3 % (0-7); HEMATOCRIT 30.9 % (42.0-54.0); HEMOGLOBIN 9.8 g/dL (13.5-17.5); IMMATURE GRANULOCYTES 1.7 % (0-5); LYMPHOCYTES 6.9 % (15-50); MCH 29.2 pg (26.0-34.0); MCHC 31.7 g/dL (31.0-37.0); MEAN PLATELET VOLUME 11.1 fL (7.4-10.4); PLATELET COUNT 211 10x3/uL (130-400); RBC 3.36 10x6/uL (4.20-6.10); RDW 14.3 % (11.5-14.5); WBC 8.1 10x3/uL (4.8-10.8)
[2017-12-01 04:54] LABS: ANION GAP 12.9 mmol/L (8-16); CARBON DIOXIDE 29.5 mmol/L (21.0-32.0); VANCOMYCIN - RANDOM 15.7 ug/mL (10.0-20.0)
[2017-12-01 04:55] LABS: CREATININE - SERUM 4.2 mg/dL (0.6-1.3); POTASSIUM - SERUM 3.4 mmol/L (3.5-5.1)
[2017-12-02] VITALS (11 sets, daily range): BP systolic 147–197; BP diastolic 63–97
[2017-12-02 04:53] LABS: BASOPHILS 0.1 % (0-2); EOSINOPHILS 1.9 % (0-7); HEMATOCRIT 32.2 % (42.0-54.0); IMMATURE GRANULOCYTES 2.4 % (0-5); LYMPHOCYTES 9.1 % (15-50); MCH 28.9 pg (26.0-34.0); MCHC 31.1 g/dL (31.0-37.0); MCV 93.1 fL (80.0-100.0); MEAN PLATELET VOLUME 10.7 fL (7.4-10.4); MONOCYTES 9.1 % (2-11); NEUTROPHILS 77.4 % (40-80); PLATELET COUNT 220 10x3/uL (130-400); RBC 3.46 10x6/uL (4.20-6.10); RDW 14.5 % (11.5-14.5); WBC 7.8 10x3/uL (4.8-10.8)
[2017-12-02 05:27] LABS: ANION GAP 12.4 mmol/L (8-16); CALCIUM 9.3 mg/dL (8.5-10.1); CARBON DIOXIDE 28.2 mmol/L (21.0-32.0); CREATININE - SERUM 3.3 mg/dL (0.6-1.3); POTASSIUM - SERUM 3.6 mmol/L (3.5-5.1); VANCOMYCIN - RANDOM 10.3 ug/mL (10.0-20.0)
[2017-12-03 04:00] VITALS: BP 170/75
[2017-12-03 05:38] LABS: BASOPHILS 0.1 % (0-2); EOSINOPHILS 1.9 % (0-7); HEMATOCRIT 32.7 % (42.0-54.0); HEMOGLOBIN 10.1 g/dL (13.5-17.5); MCH 28.8 pg (26.0-34.0); MCHC 30.9 g/dL (31.0-37.0); MCV 93.2 fL (80.0-100.0); MEAN PLATELET VOLUME 10.8 fL (7.4-10.4); PLATELET COUNT 235 10x3/uL (130-400); RBC 3.51 10x6/uL (4.20-6.10); RDW 14.3 % (11.5-14.5); WBC 9.1 10x3/uL (4.8-10.8)
[2017-12-03 06:08] LABS: ANION GAP 11.7 mmol/L (8-16); BILIRUBIN - TOTAL 0.3 mg/dL (0.2-1.3); CARBON DIOXIDE 29.9 mmol/L (21.0-32.0); CREATININE - SERUM 3.8 mg/dL (0.6-1.3); POTASSIUM - SERUM 3.6 mmol/L (3.5-5.1); PROTEIN - SERUM 6.2 g/dL (6.4-8.2)
[2017-12-03 08:43] VITALS: BP 165/73
[2017-12-03 12:46] VITALS: BP 172/70
[2017-12-03 16:26] VITALS: BP 124/45
[2017-12-03 20:00] VITALS: BP 168/80
[2017-12-04 04:00] VITALS: BP 170/72
[2017-12-04 04:53] LABS: BASOPHILS 0.1 % (0-2); EOSINOPHILS 3.4 % (0-7); HEMOGLOBIN 10.3 g/dL (13.5-17.5); IMMATURE GRANULOCYTES 2.1 % (0-5); LYMPHOCYTES 10.3 % (15-50); MCH 28.8 pg (26.0-34.0); MCHC 31.2 g/dL (31.0-37.0); MCV 92.2 fL (80.0-100.0); MEAN PLATELET VOLUME 10.5 fL (7.4-10.4); MONOCYTES 9.3 % (2-11); NEUTROPHILS 74.8 % (40-80); PLATELET COUNT 221 10x3/uL (130-400); RBC 3.58 10x6/uL (4.20-6.10); WBC 9.1 10x3/uL (4.8-10.8)
[2017-12-04 05:14] LABS: ALBUMIN 2.2 g/dL (3.4-5.0); ANION GAP 9.1 mmol/L (8-16); BILIRUBIN - TOTAL 0.46 mg/dL (0.2-1.3); CALCIUM 10.3 mg/dL (8.5-10.1); CREATININE - SERUM 3.1 mg/dL (0.6-1.3); POTASSIUM - SERUM 3.1 mmol/L (3.5-5.1); PROTEIN - SERUM 6.5 g/dL (6.4-8.2); VANCOMYCIN - RANDOM 16.1 ug/mL (10.0-20.0)
[2017-12-04 10:43] LABS: ALBUMIN 2.3 g/dL (3.4-5.0); ANION GAP 10.5 mmol/L (8-16); BILIRUBIN - TOTAL 0.43 mg/dL (0.2-1.3); CALCIUM 9.9 mg/dL (8.5-10.1); CARBON DIOXIDE 31.1 mmol/L (21.0-32.0); CREATININE - SERUM 3.4 mg/dL (0.6-1.3); PROTEIN - SERUM 5.9 g/dL (6.4-8.2)
[2017-12-04 10:44] LABS: POTASSIUM - SERUM 3.6 mmol/L (3.5-5.1)
[2017-12-04 10:51] VITALS: BP 129/43
[2017-12-04 15:10] VITALS: BP 132/62
[2017-12-04 22:58] VITALS: BP 158/53
[2017-12-05 01:21] VITALS: BP 160/48
[2017-12-05 05:44] VITALS: BP 164/54
[2017-12-05 06:44] LABS: BASOPHILS 0.1 % (0-2); EOSINOPHILS 3.2 % (0-7); HEMATOCRIT 32.8 % (42.0-54.0); HEMOGLOBIN 10.4 g/dL (13.5-17.5); IMMATURE GRANULOCYTES 1.8 % (0-5); LYMPHOCYTES 9.5 % (15-50); MCH 29.4 pg (26.0-34.0); MCHC 31.7 g/dL (31.0-37.0); MCV 92.7 fL (80.0-100.0); MEAN PLATELET VOLUME 10.3 fL (7.4-10.4); MONOCYTES 7.9 % (2-11); NEUTROPHILS 77.5 % (40-80); PLATELET COUNT 208 10x3/uL (130-400); RBC 3.54 10x6/uL (4.20-6.10)
[2017-12-05 07:03] LABS: ALBUMIN 2.2 g/dL (3.4-5.0); ANION GAP 11.4 mmol/L (8-16); BILIRUBIN - TOTAL 0.41 mg/dL (0.2-1.3); CALCIUM 10.7 mg/dL (8.5-10.1); CARBON DIOXIDE 30.8 mmol/L (21.0-32.0); CREATININE - SERUM 3.9 mg/dL (0.6-1.3); MAGNESIUM - SERUM 1.6 mg/dL (1.8-2.4); PHOSPHOROUS 5.5 mg/dL (2.5-4.9); POTASSIUM - SERUM 3.2 mmol/L (3.5-5.1); PROTEIN - SERUM 6.4 g/dL (6.4-8.2); VANCOMYCIN - RANDOM 13.8 ug/mL (10.0-20.0)
[2017-12-05 09:00] VITALS: BP 153/73
[2017-12-05 13:13] VITALS: BP 158/72
[2017-12-05 16:58] VITALS: BP 162/71
[2017-12-05 23:07] VITALS: BP 154/53
[2017-12-06 04:17] LABS: BASOPHILS 0.1 % (0-2); EOSINOPHILS 3.8 % (0-7); HEMATOCRIT 32.4 % (42.0-54.0); HEMOGLOBIN 9.9 g/dL (13.5-17.5); IMMATURE GRANULOCYTES 1.6 % (0-5); LYMPHOCYTES 10.9 % (15-50); MCH 28.7 pg (26.0-34.0); MCHC 30.6 g/dL (31.0-37.0); MCV 93.9 fL (80.0-100.0); MEAN PLATELET VOLUME 10.3 fL (7.4-10.4); MONOCYTES 8.1 % (2-11); NEUTROPHILS 75.5 % (40-80); PLATELET COUNT 204 10x3/uL (130-400); RBC 3.45 10x6/uL (4.20-6.10); RDW 14.1 % (11.5-14.5); WBC 9.2 10x3/uL (4.8-10.8)
[2017-12-06 04:36] LABS: ALBUMIN 2.2 g/dL (3.4-5.0); ANION GAP 11.7 mmol/L (8-16); BILIRUBIN - TOTAL 0.29 mg/dL (0.2-1.3); CALCIUM 10.5 mg/dL (8.5-10.1); CARBON DIOXIDE 30.1 mmol/L (21.0-32.0); CREATININE - SERUM 4.4 mg/dL (0.6-1.3); POTASSIUM - SERUM 3.8 mmol/L (3.5-5.1); PROTEIN - SERUM 6.2 g/dL (6.4-8.2); VANCOMYCIN - RANDOM 14.1 ug/mL (10.0-20.0)
[2017-12-06 05:06] VITALS: BP 189/73
[2017-12-06 08:18] VITALS: BP 178/72
[2017-12-06 13:20] VITALS: BP 164/55
[2017-12-06 16:47] VITALS: BP 175/68
[2017-12-06 20:38] VITALS: BP 190/72
[2017-12-07 04:30] VITALS: BP 182/73
[2017-12-07 06:39] LABS: BASOPHILS 0.1 % (0-2); EOSINOPHILS 3.7 % (0-7); HEMATOCRIT 31.4 % (42.0-54.0); HEMOGLOBIN 9.6 g/dL (13.5-17.5); IMMATURE GRANULOCYTES 1.3 % (0-5); LYMPHOCYTES 12.3 % (15-50); MCH 28.7 pg (26.0-34.0); MCHC 30.6 g/dL (31.0-37.0); MCV 93.7 fL (80.0-100.0); MEAN PLATELET VOLUME 11.2 fL (7.4-10.4); MONOCYTES 7.5 % (2-11); NEUTROPHILS 75.1 % (40-80); PLATELET COUNT 195 10x3/uL (130-400); RBC 3.35 10x6/uL (4.20-6.10); WBC 9.2 10x3/uL (4.8-10.8)
[2017-12-07 07:16] LABS: ALBUMIN 2.3 g/dL (3.4-5.0); ANION GAP 13.8 mmol/L (8-16); BILIRUBIN - TOTAL 0.3 mg/dL (0.2-1.3); CALCIUM 10.1 mg/dL (8.5-10.1); CARBON DIOXIDE 27.7 mmol/L (21.0-32.0); CREATININE - SERUM 4.5 mg/dL (0.6-1.3); POTASSIUM - SERUM 3.5 mmol/L (3.5-5.1); PROTEIN - SERUM 6.1 g/dL (6.4-8.2); VANCOMYCIN - RANDOM 14.8 ug/mL (10.0-20.0)
[2017-12-07 08:39] VITALS: BP 173/66
[2017-12-07 13:36] VITALS: BP 137/65
[2017-12-07 15:25] LABS: HEPATITIS C ANTIBODY <0.1 (0.0-0.9)
[2017-12-07 16:07] VITALS: BP 203/72
[2017-12-07 22:18] VITALS: BP 150/51
[2017-12-08 04:29] VITALS: BP 166/61
[2017-12-08 06:17] LABS: ANION GAP 10.7 mmol/L (8-16); CALCIUM 10.3 mg/dL (8.5-10.1); CARBON DIOXIDE 29.8 mmol/L (21.0-32.0); CREATININE - SERUM 4.4 mg/dL (0.6-1.3); POTASSIUM - SERUM 3.5 mmol/L (3.5-5.1)
[2017-12-08 06:41] LABS: BASOPHILS 0.1 % (0-2); EOSINOPHILS 4.4 % (0-7); HEMATOCRIT 29.4 % (42.0-54.0); HEMOGLOBIN 8.9 g/dL (13.5-17.5); IMMATURE GRANULOCYTES 0.7 % (0-5); MCH 28.5 pg (26.0-34.0); MCHC 30.3 g/dL (31.0-37.0); MCV 94.2 fL (80.0-100.0); MEAN PLATELET VOLUME 11.1 fL (7.4-10.4); MONOCYTES 8.2 % (2-11); NEUTROPHILS 73.6 % (40-80); PLATELET COUNT 165 10x3/uL (130-400); RBC 3.12 10x6/uL (4.20-6.10); RDW 14.1 % (11.5-14.5); WBC 8.4 10x3/uL (4.8-10.8)
[2017-12-08 09:11] VITALS: BP 168/61
[2017-12-08 12:46] VITALS: BP 157/57
[2017-12-08 16:46] VITALS: BP 130/46
[2017-12-08 20:00] VITALS: BP 146/53
[2017-12-09] VITALS: BP 151/57
[2017-12-09 03:13] LABS: IMMUNOGLOBULIN E 1057 IU/mL (0-100)
[2017-12-09 04:00] VITALS: BP 154/52
[2017-12-09 05:49] LABS: BASOPHILS 0 % (0-2); EOSINOPHILS 4.3 % (0-7); HEMATOCRIT 28.2 % (42.0-54.0); HEMOGLOBIN 8.4 g/dL (13.5-17.5); IMMATURE GRANULOCYTES 0.8 % (0-5); MCH 28.2 pg (26.0-34.0); MCHC 29.8 g/dL (31.0-37.0); MCV 94.6 fL (80.0-100.0); MEAN PLATELET VOLUME 11.5 fL (7.4-10.4); MONOCYTES 9.4 % (2-11); NEUTROPHILS 73.5 % (40-80); PLATELET COUNT 146 10x3/uL (130-400); RBC 2.98 10x6/uL (4.20-6.10); RDW 14.1 % (11.5-14.5); WBC 7.8 10x3/uL (4.8-10.8)
[2017-12-09 06:06] LABS: ANION GAP 11.3 mmol/L (8-16); CALCIUM 10.3 mg/dL (8.5-10.1); CARBON DIOXIDE 29.4 mmol/L (21.0-32.0); CREATININE - SERUM 4.6 mg/dL (0.6-1.3); POTASSIUM - SERUM 3.7 mmol/L (3.5-5.1)
[2017-12-09 08:48] VITALS: BP 158/54
[2017-12-09 09:16] LABS: APPEARANCE CLOUDY (CLEAR); COLOR YELLOW (YELLOW); SPECIFIC GRAVITY 1.015 (1.005-1.020)
[2017-12-09 09:17] LABS: BILIRUBIN NEGATIVE (NEGATIVE); GLUCOSE NEGATIVE (NEGATIVE); KETONE NEGATIVE (NEGATIVE); NITRITE NEGATIVE (NEGATIVE); PROTEIN 1+ mg/dL (NEGATIVE); UROBILINOGEN NORMAL (NORMAL)
[2017-12-09 09:19] LABS: AMORPHOUS SEDIMENT <1+ /lpf (NONE SEEN); BACTERIA MODERATE /hpf (NONE SEEN); EPITHELIAL CELLS 0-5 /hpf (0-5); MUCUS <1+ /lpf (NONE SEEN); RED CELLS - URINE 0-5 /hpf (0-5); WHITE CELLS - URINE OCC /hpf (0-5)
[2017-12-09 09:22] LABS: CREATININE - URINE 76.6 mg/dL (30-125); PRO/CRE RATIO URINE 1.3 mg/g; PROTEIN - URINE 102.5 mg/dL (0.0-11.9)
[2017-12-09 12:13] VITALS: BP 154/58
[2017-12-09 16:12] VITALS: BP 160/51
[2017-12-09 21:39] VITALS: BP 168/58
[2017-12-10 05:33] LABS: BASOPHILS 0.1 % (0-2); EOSINOPHILS 2.8 % (0-7); HEMATOCRIT 27.8 % (42.0-54.0); HEMOGLOBIN 8.4 g/dL (13.5-17.5); IMMATURE GRANULOCYTES 0.6 % (0-5); LYMPHOCYTES 12.8 % (15-50); MCH 28.4 pg (26.0-34.0); MCHC 30.2 g/dL (31.0-37.0); MCV 93.9 fL (80.0-100.0); MEAN PLATELET VOLUME 11.2 fL (7.4-10.4); MONOCYTES 8.7 % (2-11); PLATELET COUNT 138 10x3/uL (130-400); RBC 2.96 10x6/uL (4.20-6.10); RDW 14.1 % (11.5-14.5); WBC 8.3 10x3/uL (4.8-10.8)
[2017-12-10 05:34] VITALS: BP 184/65
[2017-12-10 05:38] LABS: APTT 37.3 SECONDS (22.8-39.4); INR 1.1 (0.85-1.17); PROTIME 13.8 SECONDS (11.6-15.0)
[2017-12-10 05:45] LABS: PHOSPHOROUS 6.3 mg/dL (2.5-4.9)
[2017-12-10 08:09] VITALS: BP 153/53
[2017-12-10 13:20] LABS: PROTEIN - BODY FLUID 1.8 G/DL
[2017-12-10 15:34] LABS: MACROPHAGES BF 2 %; NEUT - BF 13 %
[2017-12-10 16:55] VITALS: BP 156/51
[2017-12-10 22:49] VITALS: BP 167/53
[2017-12-11 02:50] VITALS: BP 140/77
[2017-12-11 05:54] VITALS: BP 162/57
[2017-12-11 07:06] VITALS: BP 173/60
[2017-12-11 08:48] LABS: BASOPHILS 0 % (0-2); EOSINOPHILS 3.3 % (0-7); HEMATOCRIT 28.2 % (42.0-54.0); HEMOGLOBIN 8.6 g/dL (13.5-17.5); IMMATURE GRANULOCYTES 0.5 % (0-5); LYMPHOCYTES 12.3 % (15-50); MCH 28.9 pg (26.0-34.0); MCHC 30.5 g/dL (31.0-37.0); MCV 94.6 fL (80.0-100.0); MEAN PLATELET VOLUME 10.6 fL (7.4-10.4); MONOCYTES 8.5 % (2-11); NEUTROPHILS 75.4 % (40-80); PLATELET COUNT 112 10x3/uL (130-400); RBC 2.98 10x6/uL (4.20-6.10); RDW 14.3 % (11.5-14.5); WBC 8.1 10x3/uL (4.8-10.8)
[2017-12-11 09:06] LABS: ALBUMIN 2.4 g/dL (3.4-5.0); ANION GAP 11.3 mmol/L (8-16); BILIRUBIN - TOTAL 0.26 mg/dL (0.2-1.3); CALCIUM 10.5 mg/dL (8.5-10.1); CARBON DIOXIDE 28.7 mmol/L (21.0-32.0); CREATININE - SERUM 4.4 mg/dL (0.6-1.3); MAGNESIUM - SERUM 1.8 mg/dL (1.8-2.4); PROTEIN - SERUM 6.1 g/dL (6.4-8.2)
[2017-12-11 11:02] VITALS: BP 162/53
[2017-12-11 14:12] LABS: AFB SPECIMEN PROCESSING Not Indicated (())
[2017-12-11 15:13] VITALS: BP 165/52
[2017-12-11 21:40] VITALS: BP 134/65
[2017-12-12 02:38] VITALS: BP 175/62
[2017-12-12 05:23] LABS: ANION GAP 13.6 mmol/L (8-16); CALCIUM 10.1 mg/dL (8.5-10.1); CARBON DIOXIDE 27.3 mmol/L (21.0-32.0); CREATININE - SERUM 4.3 mg/dL (0.6-1.3); POTASSIUM - SERUM 3.9 mmol/L (3.5-5.1)
[2017-12-12 05:27] LABS: BASOPHILS 0.1 % (0-2); EOSINOPHILS 3.1 % (0-7); HEMATOCRIT 28.1 % (42.0-54.0); HEMOGLOBIN 8.4 g/dL (13.5-17.5); IMMATURE GRANULOCYTES 0.4 % (0-5); MCH 28.3 pg (26.0-34.0); MCHC 29.9 g/dL (31.0-37.0); MCV 94.6 fL (80.0-100.0); MEAN PLATELET VOLUME 11.4 fL (7.4-10.4); MONOCYTES 10.9 % (2-11); NEUTROPHILS 72.5 % (40-80); PLATELET COUNT 116 10x3/uL (130-400); RBC 2.97 10x6/uL (4.20-6.10); RDW 14.3 % (11.5-14.5); WBC 7.5 10x3/uL (4.8-10.8)
[2017-12-12 05:29] VITALS: BP 165/54
[2017-12-12 08:00] VITALS: BP 183/68
[2017-12-12 11:30] VITALS: BP 172/59
[2017-12-12 15:30] VITALS: BP 178/64
[2017-12-12 22:17] VITALS: BP 196/72
[2017-12-12 23:22] LABS: CREATININE - URINE 51.4 mg/dL (30-125)
[2017-12-13 00:57] VITALS: BP 152/49
[2017-12-13 05:03] VITALS: BP 139/55
[2017-12-13 06:13] LABS: BASOPHILS 0.2 % (0-2); EOSINOPHILS 3.6 % (0-7); HEMATOCRIT 27.1 % (42.0-54.0); HEMOGLOBIN 8.2 g/dL (13.5-17.5); IMMATURE GRANULOCYTES 0.3 % (0-5); LYMPHOCYTES 13.6 % (15-50); MCH 28.7 pg (26.0-34.0); MCHC 30.3 g/dL (31.0-37.0); MCV 94.8 fL (80.0-100.0); MEAN PLATELET VOLUME 11.8 fL (7.4-10.4); MONOCYTES 11.2 % (2-11); NEUTROPHILS 71.1 % (40-80); PLATELET COUNT 116 10x3/uL (130-400); RBC 2.86 10x6/uL (4.20-6.10); RDW 14.2 % (11.5-14.5); WBC 6.4 10x3/uL (4.8-10.8)
[2017-12-13 06:27] LABS: ANION GAP 11.2 mmol/L (8-16); CALCIUM 10.4 mg/dL (8.5-10.1); CARBON DIOXIDE 28.8 mmol/L (21.0-32.0); CREATININE - SERUM 4.1 mg/dL (0.6-1.3)
[2017-12-13 07:02] VITALS: BP 171/56
[2017-12-13 10:12] LABS: FUNGUS STAIN Final report (())
[2017-12-13 11:09] VITALS: BP 157/50
[2017-12-13 15:00] VITALS: BP 146/50
[2017-12-13 23:59] VITALS: BP 183/63
[2017-12-14 04:17] VITALS: BP 189/62
[2017-12-14 06:19] LABS: BASOPHILS 0 % (0-2); EOSINOPHILS 3.7 % (0-7); HEMATOCRIT 27.5 % (42.0-54.0); HEMOGLOBIN 8.3 g/dL (13.5-17.5); IMMATURE GRANULOCYTES 0.4 % (0-5); LYMPHOCYTES 14.4 % (15-50); MCH 28.6 pg (26.0-34.0); MCHC 30.2 g/dL (31.0-37.0); MCV 94.8 fL (80.0-100.0); MEAN PLATELET VOLUME 11.6 fL (7.4-10.4); MONOCYTES 12.5 % (2-11); PLATELET COUNT 110 10x3/uL (130-400); RDW 14.2 % (11.5-14.5); WBC 5.7 10x3/uL (4.8-10.8)
[2017-12-14 06:51] LABS: ANION GAP 9.6 mmol/L (8-16); CALCIUM 10.2 mg/dL (8.5-10.1); CARBON DIOXIDE 29.6 mmol/L (21.0-32.0); POTASSIUM - SERUM 4.2 mmol/L (3.5-5.1)
[2017-12-14 07:00] VITALS: BP 223/79
[2017-12-14 11:04] VITALS: BP 187/64
[2017-12-14 15:15] VITALS: BP 199/71
[2017-12-14 15:24] LABS: SPE - ALBUMIN 2.6 g/dL (2.9-4.4); SPE - ALPHA-1 GLOBULIN 0.3 g/dL (0.0-0.4); SPE - ALPHA-2 GLOBULIN 0.7 g/dL (0.4-1.0); SPE - BETA GLOBULIN 0.9 g/dL (0.7-1.3); SPE - GAMMA GLOBULIN 0.8 g/dL (0.4-1.8); SPE - M-SPIKE Not Observed g/dL (Not Observed); SPE - TOTAL PROTEIN 5.2 g/dL (6.0-8.5)
[2017-12-14 20:00] VITALS: BP 186/77
[2017-12-15] VITALS: BP 195/64
[2017-12-15 04:00] VITALS: BP 189/71
[2017-12-15 06:35] LABS: BASOPHILS 0 % (0-2); EOSINOPHILS 4.2 % (0-7); HEMATOCRIT 28.9 % (42.0-54.0); HEMOGLOBIN 8.7 g/dL (13.5-17.5); IMMATURE GRANULOCYTES 0.4 % (0-5); LYMPHOCYTES 15.6 % (15-50); MCH 28.6 pg (26.0-34.0); MCHC 30.1 g/dL (31.0-37.0); MCV 95.1 fL (80.0-100.0); MEAN PLATELET VOLUME 11.6 fL (7.4-10.4); MONOCYTES 11.6 % (2-11); NEUTROPHILS 68.2 % (40-80); PLATELET COUNT 120 10x3/uL (130-400); RBC 3.04 10x6/uL (4.20-6.10); RDW 14.3 % (11.5-14.5); WBC 5.5 10x3/uL (4.8-10.8)
[2017-12-15 07:11] LABS: CALCIUM 10.6 mg/dL (8.5-10.1); CARBON DIOXIDE 30.2 mmol/L (21.0-32.0); CREATININE - SERUM 3.7 mg/dL (0.6-1.3); POTASSIUM - SERUM 4.2 mmol/L (3.5-5.1)
[2017-12-15 09:19] LABS: UPE RAND - ALBUMIN 63.4 % (()); UPE RAND - ALPHA 1 GLOBULIN 5.9 % (()); UPE RAND - ALPHA 2 GLOBULIN 6.7 % (()); UPE RAND - BETA GLOBULIN 12.4 % (()); UPE RAND - GAMMA GLOBULIN 11.6 % (())
[2017-12-15 13:22] VITALS: BP 170/56
[2017-12-15 17:23] VITALS: BP 166/61
[2017-12-15 21:18] VITALS: BP 153/59
[2017-12-16 04:09] VITALS: BP 150/50
[2017-12-16 05:02] LABS: BASOPHILS 0.2 % (0-2); EOSINOPHILS 5.7 % (0-7); HEMATOCRIT 27.4 % (42.0-54.0); HEMOGLOBIN 8.2 g/dL (13.5-17.5); IMMATURE GRANULOCYTES 0.5 % (0-5); LYMPHOCYTES 20.3 % (15-50); MCH 28.8 pg (26.0-34.0); MCHC 29.9 g/dL (31.0-37.0); MCV 96.1 fL (80.0-100.0); NEUTROPHILS 60.3 % (40-80); PLATELET COUNT 115 10x3/uL (130-400); RBC 2.85 10x6/uL (4.20-6.10); RDW 14.4 % (11.5-14.5); WBC 4.4 10x3/uL (4.8-10.8)
[2017-12-16 05:11] LABS: ANION GAP 9.9 mmol/L (8-16); CALCIUM 10.3 mg/dL (8.5-10.1); CARBON DIOXIDE 29.2 mmol/L (21.0-32.0); CREATININE - SERUM 3.9 mg/dL (0.6-1.3); POTASSIUM - SERUM 4.1 mmol/L (3.5-5.1)
[2017-12-16 08:55] VITALS: BP 177/77
[2017-12-16 11:45] VITALS: BP 166/56
[2017-12-16 15:42] VITALS: BP 156/54
[2017-12-16 20:55] VITALS: BP 143/68
[2017-12-16 23:17] VITALS: BP 140/64
[2017-12-17 04:24] VITALS: BP 165/51
[2017-12-17 07:14] LABS: BASOPHILS 0.2 % (0-2); EOSINOPHILS 5.7 % (0-7); HEMATOCRIT 27.9 % (42.0-54.0); HEMOGLOBIN 8.5 g/dL (13.5-17.5); IMMATURE GRANULOCYTES 0.2 % (0-5); LYMPHOCYTES 17.3 % (15-50); MCH 28.9 pg (26.0-34.0); MCHC 30.5 g/dL (31.0-37.0); MCV 94.9 fL (80.0-100.0); MEAN PLATELET VOLUME 10.9 fL (7.4-10.4); MONOCYTES 10.2 % (2-11); NEUTROPHILS 66.4 % (40-80); PLATELET COUNT 107 10x3/uL (130-400); RBC 2.94 10x6/uL (4.20-6.10); RDW 14.4 % (11.5-14.5); WBC 5.1 10x3/uL (4.8-10.8)
[2017-12-17 07:16] LABS: ANION GAP 8.7 mmol/L (8-16); CALCIUM 10.4 mg/dL (8.5-10.1); CARBON DIOXIDE 31.8 mmol/L (21.0-32.0); CREATININE - SERUM 3.6 mg/dL (0.6-1.3); POTASSIUM - SERUM 4.5 mmol/L (3.5-5.1)
[2017-12-17 09:07] VITALS: BP 181/67
[2017-12-17 12:36] VITALS: BP 168/51
[2017-12-17] MEDS ORDERED: HYDRALAZINE HCL50 MG PO (15:50)
[2017-12-17] MEDS ORDERED: MUCINEX DM ER1 EAC1 PO (15:51)
[2017-12-17] MEDS ORDERED: ZOLOFT50 MG PO (15:51)
[2017-12-17] MEDS ORDERED: FLUTICASONE PRO16 GM NASAL (15:51)
[2017-12-17] MEDS ORDERED: TESSALON PERLE100 MG PO (15:51)
[2017-12-17] MEDS ORDERED: SINGULAIR10 MG PO (15:51)
[2017-12-17] MEDS ORDERED: HUMULIN R100 U/ML SC (15:55)
[2017-12-17] MEDS ORDERED: IPRAT-ALBUT 0.5-3 ML UPD (15:55)
[2017-12-17 16:27] VITALS: BP 162/57
[2018-01-06 15:26] LABS: FUNGUS MYCOLOGY CULTURE Final report (())
[2018-02-01 17:13] LABS: ACID FAST CULTURE Negative (()); ACID FAST SMEAR Negative (())
== END 2017-12-17 17:09 | DRG 177 ==
LOC: D.ER 10:39 → D.MS 12:26 → D.ICU 12:26 → D.M2 12:26 → D.EDHOLD 12:26 → D.SDCHOLD 13:24 → D.M2 14:17 → D.ICU 11-28 07:09 → D.MS 12-02 07:59
PROVIDERS: Emergency Medicine; Family Medicine; Family Medicine Adult Medicine; Internal Medicine; Internal Medicine Nephrology; Internal Medicine Pulmonary Disease
PROC: 0T9B70Z Drainage of Bladder with Drainage Device, Via Natural or Artificial Opening (ICD-10-PCS; 2017-11-26)
PROC: 5A09457 Assistance with Respiratory Ventilation, 24-96 Consecutive Hours, Continuous Positive Airway Pressure (ICD-10-PCS; principal; 2017-11-28)
PROC: 5A1D70Z Performance of Urinary Filtration, Intermittent, Less than 6 Hours Per Day (ICD-10-PCS; 2017-11-30)
PROC: 05HM33Z Insertion of Infusion Device into Right Internal Jugular Vein, Percutaneous Approach (ICD-10-PCS; 2017-11-30)
PROC: B543ZZA Ultrasonography of Right Jugular Veins, Guidance (ICD-10-PCS; 2017-11-30)
PROC: 0W9B3ZZ Drainage of Left Pleural Cavity, Percutaneous Approach (ICD-10-PCS; 2017-12-10)
DX: J15.6 Pneumonia due to other Gram-negative bacteria (principal); I21.4 Non-ST elevation (NSTEMI) myocardial infarction; N17.0 Acute kidney failure with tubular necrosis; G93.41 Metabolic encephalopathy; J96.22 Acute and chronic respiratory failure with hypercapnia; J96.21 Acute and chronic respiratory failure with hypoxia; I13.0 Hypertensive heart and chronic kidney disease with heart failure and stage 1 through stage 4 chronic kidney disease, or unspecified chronic kidney disease; J44.0 Chronic obstructive pulmonary disease with (acute) lower respiratory infection; J44.1 Chronic obstructive pulmonary disease with (acute) exacerbation; N39.0 Urinary tract infection, site not specified; E87.2 Acidosis; N18.4 Chronic kidney disease, stage 4 (severe); Z66 Do not resuscitate; J13 Pneumonia due to Streptococcus pneumoniae; E11.22 Type 2 diabetes mellitus with diabetic chronic kidney disease; I50.9 Heart failure, unspecified; H40.9 Unspecified glaucoma; E78.5 Hyperlipidemia, unspecified; I25.10 Atherosclerotic heart disease of native coronary artery without angina pectoris; Z95.5 Presence of coronary angioplasty implant and graft; K21.9 Gastro-esophageal reflux disease without esophagitis; D50.9 Iron deficiency anemia, unspecified; E55.9 Vitamin D deficiency, unspecified; F03.90 Unspecified dementia, unspecified severity, without behavioral disturbance, psychotic disturbance, mood disturbance, and anxiety; E78.1 Pure hyperglyceridemia; E83.42 Hypomagnesemia; E83.39 Other disorders of phosphorus metabolism; E83.52 Hypercalcemia; Z99.81 Dependence on supplemental oxygen; I95.3 Hypotension of hemodialysis

== ENCOUNTER 2017-12-29 17:52 | Inpatient (IN) | payer OTHER ==
[~2017-12-29] VITALS: Ht 182.9 cm; Wt 83.5 kg
--- NOTE | ~2017-12-29 | CN ---
PATIENT NAME:DWAINE MIKE MEDICAL RECORD: [id number] : 35 LOCATION:. D.2123 ADMIT DATE: 12/29/17 ACCOUNT: [id number] CONSULTING PHYSICIAN: TINO SOARES MD REFERRING PHYSICIAN: DENA LOPEZ MD DATE OF CONSULTATION: 12/31/2017 CONSULT REQUESTING PHYSICIAN: Dena Lopez MD REASON FOR CONSULTATION: Questionable pneumonia. HISTORY OF PRESENT ILLNESS: Mr. Caicedo is an 82-year-old gentleman who has a history of acute renal failure, respiratory failure, bilateral pneumonia, and pleural effusion. The patient was discharged to the rehab and he vomited once and the patient was brought back. The chest radiograph was not any worse than before and he has a left pleural effusion was unchanged. The patient has some leukocytosis, started on Rocephin and Zithromax. The leukocytosis, improved, now the patient is feeling a lot better. REVIEW OF SYSTEMS: As in history of present illness. PAST MEDICAL HISTORY: 1. COPD, home oxygen dependent. 2. Hypertension. 3. Coronary artery disease. 4. Hyperlipidemia. 5. Cardiac catheterization stent placement. 6. Gastroesophageal reflux disease. 7. Diabetes mellitus. 8. History of skin cancer. PAST SURGICAL HISTORY: 1. He has a cataract surgery. 2. History of broken wrist. ALLERGIES: There are no known drug allergy. MEDICATIONS: On FMS [place] is reviewed. PERSONAL AND SOCIAL HISTORY: The patient is an ex-smoker. He is a nondrinker. FAMILY HISTORY: Noncontributory. PHYSICAL EXAMINATION: GENERAL: Now, the patient is lying comfortably. He is not in acute distress. VITAL SIGNS: The blood pressure is 160/60, pulse is 74, respiration 20, temperature 98.1, and SPO2 is 90% on 2 liter nasal cannula. HEENT: Conjunctivae is pink. Sclerae are not icteric. NECK: Supple, no JVD. CHEST: The chest excursion is minimal on both sides. There is bibasilar crackle. No wheezing. HEART: Rhythm regular, normal sound, no murmur. ABDOMEN: Soft, bowel sounds present. No hepatosplenomegaly. RECTAL: Deferred. EXTREMITIES: No cyanosis, no clubbing, no pedal edema. CONSULT REPORT [id number] DWAINE MIKE SKIN: Warm, normal turgor. CENTRAL NERVOUS SYSTEM: The patient is awake and alert. There are no obvious cranial nerve abnormality. The gait was not tested. IMAGING: Chest radiograph, there is left pleural effusion. There is some increased interstitial marking, is not worse than the previous chest radiograph on previous admission. OTHER LABORATORY DATA: CBC: The WBC is 12.5, it is improved to 6.2. Hematocrit 26.4. Chemistry: Sodium 140, potassium 5.5, BUN is 60, creatinine 4.3. IMPRESSION: 1. Bibasilar pneumonia, most likely hospital-acquired pneumonia, but comparing to the previous chest radiograph, it is not worse. 2. Left-sided pleural effusion, stable. 3. Chronic obstructive pulmonary disease without exacerbation. 4. Chronic renal failure. 5. Chronic hypoxic respiratory failure. 6. Anemia of chronic kidney disease. RECOMMENDATION: 1. I will discontinue Zithromax, start him on Levaquin. Continue his ceftriaxone IV. 2. Albuterol and ipratropium nebulizer. 3. Add Brovana and budesonide nebulizer. 4. Repeat the chest radiograph in the morning. Dr. Lopez, thank you for involving me in the care of Mr. Mike. TRANSINT:[id number] Voice Confirmation ID: [id number] DOCUMENT ID: [id number] TINO SOARES MD at 1208 CC: DENA LOPEZ MD [id number] DICTATION DATE: 12/31/171733 HUMAN RESOURCES MANAGER: 12/31/17 1826 DIS IN 01/04/18 [id number] [place] [address]
[~2017-12-29 17:52] MED LIST changes: +FLUTICASONE PRO16 GM NASAL; +HUMULIN R100 U/ML SC; +HYDRALAZINE HCL50 MG PO; +IPRAT-ALBUT 0.5-3 ML UPD; +MUCINEX DM ER1 EAC1 PO; +SINGULAIR10 MG PO; +TESSALON PERLE100 MG PO; +ZOLOFT50 MG PO
[2017-12-29 18:41] LABS: BASOPHILS 0 % (0-2); EOSINOPHILS 0.2 % (0-7); HEMOGLOBIN 8.1 g/dL (13.5-17.5); IMMATURE GRANULOCYTES 0.4 % (0-5); LYMPHOCYTES 7.3 % (15-50); MCH 29.5 pg (26.0-34.0); MCV 98.2 fL (80.0-100.0); MEAN PLATELET VOLUME 11.5 fL (7.4-10.4); MONOCYTES 10.9 % (2-11); NEUTROPHILS 81.2 % (40-80); PLATELET COUNT 125 10x3/uL (130-400); RBC 2.75 10x6/uL (4.20-6.10); RDW 15.4 % (11.5-14.5); WBC 12.5 10x3/uL (4.8-10.8)
[2017-12-29 18:55] LABS: ALBUMIN 2.8 g/dL (3.4-5.0); ANION GAP 11.3 mmol/L (8-16); BILIRUBIN - TOTAL 0.3 mg/dL (0.2-1.3); CARBON DIOXIDE 29.1 mmol/L (21.0-32.0); CREATININE - SERUM 4.3 mg/dL (0.6-1.3); POTASSIUM - SERUM 5.4 mmol/L (3.5-5.1); PROTEIN - SERUM 6.6 g/dL (6.4-8.2)
[2017-12-29 20:03] LABS: TROPONIN-I 4.485 ng/mL (0.000-0.060)
[2017-12-29 23:33] LABS: CKMB 13.3 U/L (0.0-3.6); CREATINE KINASE 121 UL (21-232)
[2017-12-29 23:36] LABS: TROPONIN-I 4.669 ng/mL (0.000-0.060)
[2017-12-30 01:37] VITALS: BP 171/79; BMI 26.2
[2017-12-30] MEDS ORDERED: NORVASC10 MG PO (02:30)
[2017-12-30] MEDS ORDERED: SINGULAIR10 MG PO (02:42)
[2017-12-30] MEDS ORDERED: MUCINEX600 MG PO (02:50)
[2017-12-30] MEDS ORDERED: CATAPRES0.1 MG PO (03:12)
[2017-12-30 04:00] VITALS: BP 165/63
[2017-12-30 06:23] LABS: BASOPHILS 0.1 % (0-2); EOSINOPHILS 1.6 % (0-7); HEMATOCRIT 26.4 % (42.0-54.0); HEMOGLOBIN 7.9 g/dL (13.5-17.5); IMMATURE GRANULOCYTES 0.8 % (0-5); LYMPHOCYTES 15.9 % (15-50); MCH 29.3 pg (26.0-34.0); MCHC 29.9 g/dL (31.0-37.0); MCV 97.8 fL (80.0-100.0); MEAN PLATELET VOLUME 11.5 fL (7.4-10.4); MONOCYTES 12.6 % (2-11); PLATELET COUNT 119 10x3/uL (130-400); RDW 15.5 % (11.5-14.5)
[2017-12-30 06:25] LABS: WBC 7.6 10x3/uL (4.8-10.8)
[2017-12-30 07:07] LABS: ALBUMIN 2.6 g/dL (3.4-5.0); ALKALINE PHOSPHATASE 80 U/L (46-116); ALT (SGPT) 289 U/L (10-68); CALC OSMOLALITY 296 mosm/kg (275-300); CALCIUM 9.4 mg/dL (8.5-10.1); CARBON DIOXIDE 30.4 mmol/L (21.0-32.0); CHLORIDE - SERUM 105 mmol/L (98-107); CKMB 9.9 U/L (0.0-3.6); CREATINE KINASE 90 UL (21-232); CREATININE - SERUM 4.4 mg/dL (0.6-1.3); GLUCOSE 134 mg/dL (74-106); POTASSIUM - SERUM 5.5 mmol/L (3.5-5.1); PROTEIN - SERUM 6.3 g/dL (6.4-8.2); SODIUM 140 mmol/L (136-145); UREA NITROGEN 56 mg/dL (7-18); eGFR NON AFRICAN AMERICAN 14 mL/min (90-120)
[2017-12-30 07:17] LABS: TROPONIN-I 3.952 ng/mL (0.000-0.060)
[2017-12-30 08:10] VITALS: BP 149/59
[2017-12-30 10:09] LABS: CKMB 8.8 U/L (0.0-3.6); CREATINE KINASE 82 UL (21-232); TROPONIN-I 3.561 ng/mL (0.000-0.060)
[2017-12-30 11:21] VITALS: BP 156/60
[2017-12-30 14:06] VITALS: Ht 182.9 cm; Wt 83.5 kg
[2017-12-30 16:03] VITALS: BP 146/64
[2017-12-30 17:44] LABS: % SATURATION 4 % (15-55); IRON 11 ug/dl (35-150); TOTAL IRON BIND CAPACITY 266 ug/dl (260-445); UNSAT IRON BIND CAPACITY 255 ug/dl (150-375)
[2017-12-30 20:00] VITALS: BP 161/58
[2017-12-31 04:00] VITALS: BP 163/63
[2017-12-31 04:23] LABS: BASOPHILS 0.2 % (0-2); EOSINOPHILS 5.7 % (0-7); HEMATOCRIT 26.4 % (42.0-54.0); HEMOGLOBIN 7.9 g/dL (13.5-17.5); IMMATURE GRANULOCYTES 1.3 % (0-5); LYMPHOCYTES 13.7 % (15-50); MCH 29.5 pg (26.0-34.0); MCHC 29.9 g/dL (31.0-37.0); MCV 98.5 fL (80.0-100.0); MEAN PLATELET VOLUME 11.4 fL (7.4-10.4); MONOCYTES 13.2 % (2-11); NEUTROPHILS 65.9 % (40-80); PLATELET COUNT 134 10x3/uL (130-400); RBC 2.68 10x6/uL (4.20-6.10); RDW 15.6 % (11.5-14.5); WBC 6.2 10x3/uL (4.8-10.8)
[2017-12-31 04:43] LABS: ALBUMIN 2.6 g/dL (3.4-5.0); BILIRUBIN - TOTAL 0.25 mg/dL (0.2-1.3); CALCIUM 9.3 mg/dL (8.5-10.1); CARBON DIOXIDE 28.5 mmol/L (21.0-32.0); CREATININE - SERUM 4.3 mg/dL (0.6-1.3); POTASSIUM - SERUM 5.5 mmol/L (3.5-5.1); PROTEIN - SERUM 6.3 g/dL (6.4-8.2)
[2017-12-31 09:26] VITALS: BP 198/74
[2017-12-31 12:03] VITALS: BP 168/58
[2017-12-31 15:57] VITALS: BP 160/60
[2017-12-31 18:26] LABS: APPEARANCE CLEAR (CLEAR); BILIRUBIN NEGATIVE (NEGATIVE); COLOR YELLOW (YELLOW); GLUCOSE 50 mg/dL (NEGATIVE); KETONE NEGATIVE (NEGATIVE); NITRITE NEGATIVE (NEGATIVE); PROTEIN TRACE mg/dL (NEGATIVE); SPECIFIC GRAVITY 1.015 (1.005-1.020); UROBILINOGEN NORMAL (NORMAL)
[2017-12-31 19:00] VITALS: BP 182/67
[2018-01-01 00:26] VITALS: BP 119/62
[2018-01-01 04:00] VITALS: BP 188/77
[2018-01-01 05:37] LABS: BASOPHILS 0.2 % (0-2); EOSINOPHILS 5.9 % (0-7); HEMATOCRIT 28.3 % (42.0-54.0); HEMOGLOBIN 8.4 g/dL (13.5-17.5); IMMATURE GRANULOCYTES 1.4 % (0-5); LYMPHOCYTES 13.1 % (15-50); MCH 28.9 pg (26.0-34.0); MCHC 29.7 g/dL (31.0-37.0); MCV 97.3 fL (80.0-100.0); MEAN PLATELET VOLUME 11.2 fL (7.4-10.4); MONOCYTES 13.5 % (2-11); NEUTROPHILS 65.9 % (40-80); PLATELET COUNT 146 10x3/uL (130-400); RBC 2.91 10x6/uL (4.20-6.10); RDW 15.2 % (11.5-14.5); WBC 6.6 10x3/uL (4.8-10.8)
[2018-01-01 06:08] LABS: % SATURATION 25 % (15-55); IRON 55 ug/dl (35-150); TOTAL IRON BIND CAPACITY 213 ug/dl (260-445); UNSAT IRON BIND CAPACITY 158 ug/dl (150-375)
[2018-01-01 06:54] LABS: ALBUMIN 2.7 g/dL (3.4-5.0); ANION GAP 13.8 mmol/L (8-16); BILIRUBIN - TOTAL 0.31 mg/dL (0.2-1.3); CALCIUM 9.4 mg/dL (8.5-10.1); CARBON DIOXIDE 28.2 mmol/L (21.0-32.0); CREATININE - SERUM 3.9 mg/dL (0.6-1.3); PROTEIN - SERUM 6.5 g/dL (6.4-8.2)
[2018-01-01 09:12] LABS: FOLATE (FOLIC ACID) - SERUM 10.1 ng/mL (>3.0)
[2018-01-01 09:24] VITALS: BP 226/82
[2018-01-01 11:38] VITALS: BP 209/72
[2018-01-01 15:59] VITALS: BP 198/67
[2018-01-01 21:24] VITALS: BP 187/80
[2018-01-02 02:14] VITALS: BP 159/63
[2018-01-02 05:36] VITALS: BP 177/70
[2018-01-02 06:16] LABS: BASOPHILS 0.2 % (0-2); EOSINOPHILS 3.1 % (0-7); HEMATOCRIT 28.7 % (42.0-54.0); HEMOGLOBIN 8.7 g/dL (13.5-17.5); LYMPHOCYTES 16.8 % (15-50); MCH 29.2 pg (26.0-34.0); MCHC 30.3 g/dL (31.0-37.0); MCV 96.3 fL (80.0-100.0); MEAN PLATELET VOLUME 10.8 fL (7.4-10.4); MONOCYTES 14.2 % (2-11); NEUTROPHILS 64.7 % (40-80); PLATELET COUNT 156 10x3/uL (130-400); RBC 2.98 10x6/uL (4.20-6.10); RDW 15.1 % (11.5-14.5); WBC 6.1 10x3/uL (4.8-10.8)
[2018-01-02 06:31] LABS: ALBUMIN 2.7 g/dL (3.4-5.0); ANION GAP 11.2 mmol/L (8-16); BILIRUBIN - TOTAL 0.36 mg/dL (0.2-1.3); CALCIUM 9.8 mg/dL (8.5-10.1); CARBON DIOXIDE 30.8 mmol/L (21.0-32.0); CREATININE - SERUM 3.4 mg/dL (0.6-1.3); MAGNESIUM - SERUM 1.6 mg/dL (1.8-2.4); PHOSPHOROUS 4.6 mg/dL (2.5-4.9); PROTEIN - SERUM 6.4 g/dL (6.4-8.2)
[2018-01-02 07:57] VITALS: BP 191/67
[2018-01-02 11:23] VITALS: BP 158/59
[2018-01-02 15:36] VITALS: BP 183/64
[2018-01-02 21:01] VITALS: BP 200/71
[2018-01-03 01:18] VITALS: BP 183/66
[2018-01-03 06:00] VITALS: BP 183/69
[2018-01-03 06:14] LABS: BASOPHILS 0.2 % (0-2); EOSINOPHILS 5.8 % (0-7); HEMATOCRIT 27.4 % (42.0-54.0); HEMOGLOBIN 8.2 g/dL (13.5-17.5); IMMATURE GRANULOCYTES 0.9 % (0-5); LYMPHOCYTES 16.3 % (15-50); MCHC 29.9 g/dL (31.0-37.0); MCV 96.8 fL (80.0-100.0); NEUTROPHILS 63.8 % (40-80); PLATELET COUNT 153 10x3/uL (130-400); RBC 2.83 10x6/uL (4.20-6.10); RDW 15.1 % (11.5-14.5); WBC 6.6 10x3/uL (4.8-10.8)
[2018-01-03 06:30] LABS: ALBUMIN 2.5 g/dL (3.4-5.0); ANION GAP 9.8 mmol/L (8-16); BILIRUBIN - TOTAL 0.25 mg/dL (0.2-1.3); CALCIUM 9.5 mg/dL (8.5-10.1); CARBON DIOXIDE 32.2 mmol/L (21.0-32.0); CREATININE - SERUM 3.4 mg/dL (0.6-1.3); MAGNESIUM - SERUM 1.6 mg/dL (1.8-2.4); PHOSPHOROUS 4.3 mg/dL (2.5-4.9); PROTEIN - SERUM 5.9 g/dL (6.4-8.2)
[2018-01-03 08:24] VITALS: BP 195/73
[2018-01-03 11:12] VITALS: BP 169/62
[2018-01-03 15:07] VITALS: BP 182/62
[2018-01-03 19:00] VITALS: BP 162/86
[2018-01-04 04:00] VITALS: BP 166/60
[2018-01-04 05:48] LABS: BASOPHILS 0.1 % (0-2); EOSINOPHILS 7.1 % (0-7); HEMATOCRIT 28.9 % (42.0-54.0); HEMOGLOBIN 8.6 g/dL (13.5-17.5); IMMATURE GRANULOCYTES 0.8 % (0-5); LYMPHOCYTES 18.4 % (15-50); MCH 29.1 pg (26.0-34.0); MCHC 29.8 g/dL (31.0-37.0); MCV 97.6 fL (80.0-100.0); MEAN PLATELET VOLUME 10.8 fL (7.4-10.4); NEUTROPHILS 60.6 % (40-80); PLATELET COUNT 154 10x3/uL (130-400); RBC 2.96 10x6/uL (4.20-6.10); RDW 14.9 % (11.5-14.5); WBC 7.1 10x3/uL (4.8-10.8)
[2018-01-04 06:19] LABS: ALBUMIN 2.7 g/dL (3.4-5.0); BILIRUBIN - TOTAL 0.3 mg/dL (0.2-1.3); CALCIUM 10.2 mg/dL (8.5-10.1); CREATININE - SERUM 3.5 mg/dL (0.6-1.3); PROTEIN - SERUM 6.3 g/dL (6.4-8.2)
[2018-01-04 07:44] VITALS: BP 172/65
== END 2018-01-04 11:28 | DRG 280 ==
LOC: D.ER 17:52 → D.M2 21:22 → D.EDHOLD 21:22 → D.MS 23:27 → D.M2 23:58
PROVIDERS: Emergency Medicine; Family Medicine; Internal Medicine Nephrology; Physician Assistant
DX: I21.4 Non-ST elevation (NSTEMI) myocardial infarction (principal); N17.0 Acute kidney failure with tubular necrosis; J96.11 Chronic respiratory failure with hypoxia; I13.0 Hypertensive heart and chronic kidney disease with heart failure and stage 1 through stage 4 chronic kidney disease, or unspecified chronic kidney disease; I50.22 Chronic systolic (congestive) heart failure; J98.11 Atelectasis; N18.4 Chronic kidney disease, stage 4 (severe); J44.9 Chronic obstructive pulmonary disease, unspecified; E11.22 Type 2 diabetes mellitus with diabetic chronic kidney disease; E11.65 Type 2 diabetes mellitus with hyperglycemia; E11.51 Type 2 diabetes mellitus with diabetic peripheral angiopathy without gangrene; D63.1 Anemia in chronic kidney disease; E55.9 Vitamin D deficiency, unspecified; I25.5 Ischemic cardiomyopathy; K21.9 Gastro-esophageal reflux disease without esophagitis; I25.10 Atherosclerotic heart disease of native coronary artery without angina pectoris; E78.5 Hyperlipidemia, unspecified; R74.8 Abnormal levels of other serum enzymes; E87.5 Hyperkalemia; Z99.81 Dependence on supplemental oxygen; E78.1 Pure hyperglyceridemia; E83.42 Hypomagnesemia; Z95.5 Presence of coronary angioplasty implant and graft; Z87.891 Personal history of nicotine dependence